=== PATIENT | male | born 1980 | race Caucasian/White ===

== ENCOUNTER → 2022-07-15 09:12 | Outpatient (BNVA) | payer OTHER, MEDICAID, SELFPAY | PROVIDERS: Visit Provider Podiatrist Foot & Ankle Surgery | DX: E11.621 Type 2 diabetes mellitus with foot ulcer (principal); L97.503 Non-pressure chronic ulcer of other part of unspecified foot with necrosis of muscle; E11.9 Type 2 diabetes mellitus without complications; G62.9 Polyneuropathy, unspecified; Z79.84 Long term (current) use of oral hypoglycemic drugs | CPT/HCPCS: 73630 ==

== ENCOUNTER 2023-07-03 09:45 | Outpatient (CLI) | payer OTHER, SELFPAY ==
--- NOTE | 2023-07-03 09:52 | XR_ITS ---
WS: [id number] Exam: XR foot RT min 3V* [id number] Date/Time of Exam: 07/03/2023 9:55 AM Reason For Exam: non-healing ulcer of right plantar foot Comparison 07/15/2022. No acute fracture or bone destruction identified. Degenerative changes in the midfoot joints. There m ay be soft tissue ulceration along the plantar aspect of the midfoot region. There is bony sclerosis of the tarsal bones with some early joint disorganization that could indicate early changes of [place] t neuropathy. IMPRESSION: 1. Large plantar skin ulceration. Generalized edema of the foot. 2. No fracture or bone destruction seen. 3. Degenerative changes in the midfoot joints with bony sclerosis of several tarsal bones. Early womack ges of Charcot neuropathy might be a consideration.
== END 2023-07-03 09:46 | disposition home or self-care (01) ==
LOC: RAD 09:47
PROVIDERS: PCP Thoracic Surgery (Cardiothoracic Vascular Surgery); Visit Provider Thoracic Surgery (Cardiothoracic Vascular Surgery)
DX: E08.621 Diabetes mellitus due to underlying condition with foot ulcer (principal); L97.502 Non-pressure chronic ulcer of other part of unspecified foot with fat layer exposed; L97.509 Non-pressure chronic ulcer of other part of unspecified foot with unspecified severity
CPT/HCPCS: 73630

== ENCOUNTER 2023-07-04 21:39 | Inpatient (IN) | payer OTHER, SELFPAY ==
[2023-07-04 21:43] VITALS: BP 178/72; PULSE 104; RESP 20; TEMP 38.6; O2SAT 98
[2023-07-04] MEDS: acetaminophen 500 mg Tablet 1000 MG PO (22:06)
--- NOTE | 2023-07-04 22:43 | XRR_ITS ---
PROCEDURE INFORMATION: Exam: XR Chest Exam date and time: 07/04/2023 10:46 PM Age: 42 years old Clinical indication: Cough and fever; Additional info: Cough fever TECHNIQUE: Imaging protocol: Radiologic exam of the chest. Views: 1 view. COMPARISON: No relevant prior studies available. FINDINGS: Lungs: Bilateral left greater than right hilar to lower lobe bronchopneumonia. Pleural spaces: Unremarkable. No pleural effusion. No pneumothorax. Heart/Mediastinum: Unremarkable. No cardiomegaly. Bones/joints: Unremarkable. XR/XR chest 1V portable [id number] IMPRESSION: Bilateral left greater than right hilar to lower lobe bronchopneumonia.
[2023-07-04 23:06] VITALS: PULSE 104; RESP 22; TEMP 37.6; O2SAT 92
[2023-07-04 23:12] LABS: Basophils # 0.1 10^3/uL (0.0-0.1); Basophils % 0.2 %; Hematocrit 38.7 % (37-53); Lymphocytes # 0.7 10^3/uL (0.8-4.8); Lymphocytes % 2.3 %; Mean Corpuscular HGB Conc 31.8 g/dL (30-55); Mean Corpuscular Hemoglobin 28.5 pg (27-33); Mean Corpuscular Volume 89.8 fl (82-101); Mean Platelet Volume 11.1 fL (7.4-10.4); Monocytes # 0.7 10^3/uL (0.2-0.9); Monocytes % 2.4 %; Neutrophils # 28.54 10^3/uL (1.8-7.7); Neutrophils % 94.4 %; Nucleated Red Blood Cells % 0 %; Platelet Count 339 10^3/cmm (157-399); Red Blood Count 4.31 10^6/uL (3.85-5.65); Red Cell Distribution Width 13.2 % (12.1-15.1)
--- NOTE | 2023-07-04 23:27 | ED_ITS ---
HPI - Fever 2 General: Chief Complaint: Fever Stated Complaint: weakness Time Seen by Provider: 07/04/23 22:41 History of Present Illness: Presents to the ER today with complaints of cough fever and shaking all beginning this afternoon. Upon patient's arrival his pulse was 104, temperature was 101.4. Patient states he has been around a lot of people knowing that he is known has been overtly sick. Patient is a diabetic patient states before this afternoon he felt just fine. Review of Systems 2 General: Reports: 10 or more systems reviewed and unremarkable except in HPI and below Physical Exam 2 Const: COMMON NORMALS: no acute distress, average body habitus, patient oriented x3, no limitations, healthy appearing, alert and well nourished HENMT: COMMON NORMALS: normocephalic, atraumatic, hearing grossly normal bilaterally, external ears normal, EAC's normal, moist oral mucous membranes and oropharynx normal HEAD & SCALP: normocephalic and atraumatic EXTERNAL EAR: Yes external ears normal EXTERNAL AUDITORY CANAL: EAC's normal Neck/C-Spine: COMMON NORMALS: full ROM, no lymphadenopathy, supple, no meningeal signs, no JVD and Thyroid normal THYROID: Thyroid normal Chest: COMMONS NORMALS: normal inspection of the chest and normal palpation of entire chest wall Resp: COMMON NORMALS: normal respiratory effort, No retractions, No use of accessory muscles and clear to auscultation bilaterally AUSCULTATION: clear to auscultation bilaterally Cardio: COMMON NORMALS: no JVD, regular rhythm, S1 normal heart sound present, S2 normal heart sound present, No gallops present (Cardio), No clicks present (Cardio), No murmurs present (Cardio) and No rub (Cardio); negative for regular rate (Tachycardic) RATE: abnormal rate (Tachycardic) RHYTHM: regular rhythm HEART SOUNDS: S1 normal heart sound present and S2 normal heart sound present GI: COMMON NORMALS: Normal to inspection, nondistended, normoactive bowel sounds present, Soft to palpation, non-tender, No hepatosplenomegaly present and no masses PALPATION: Yes Soft to palpation and Yes No hepatosplenomegaly present Neuro: COMMON NORMALS: patient oriented x3 SENSORIUM/ORIENTATION: Yes alert MENINGEAL SIGNS: Yes no meningeal signs Course 2 Vital Signs: Vital signs: Vital Signs Temperature 99.7 F H 07/04/23 23:06 Pulse Rate 99 07/05/23 01:00 Respiratory Rate 21 H 07/05/23 01:00 Blood Pressure 136/40 07/05/23 01:00 Pulse Oximetry 94 07/05/23 01:00 Oxygen Delivery Me thod Room Air 07/05/23 01:00 MDM - Fever Medical Decision Making Lab work was obtained which showed a white count of 30,000, chest x-ray showed bilateral left greater than right hilar to lower lobe bronchopneumonia. Patient was given Zosyn, Tylenol and a liter saline in the ER. Dr. rTejo was consulted who agreed to place patient inpatient for further evaluation and treatment. We will try to obtain a CTA of the chest, an ABG, and a full respiratory panel. Differential Diagnosis Unlikely abdominal pain, acute appendicitis, calculus of kidney, constipation, diverticulitis, endometriosis, gastroenteritis, pancreatitis or small bowel obstruction Medical Records I reviewed the patient's medical records. Lab Data I reviewed the patient's lab results. 07/04/23 23:03 07/04/23 23:03 Radiology Impressions Chest X-Ray 07/04/23 22:43 IMPRESSION: Bilateral left greater than right hilar to lower lobe bronchopneumonia. Laboratory Results WBC 30.25 10^3/uL (3.29-11.43) H* 07/04/23 23:03 RBC 4.31 10^6/uL (3.85-5.65) 07/04/23 23:03 Hgb 12.30 g/dL (11.27-16.99) 07/04/23 23:03 Hct 38.7 % (37-53) 07/04/23 23:03 MCV 89.8 fl (82-101) 07/04/23 23:03 MCH 28.5 pg (27-33) 07/04/23 23:03 MCHC 31.8 g/dL (30-55) 07/04/23 23:03 RDW 13.2 % (12.1-15.1) 07/04/23 23:03 Plt Count 339 10^3/cmm (157-399) 07/04/23 23:03 MPV 11.1 fL (7.4-10.4) H 07/04/23 23:03 Neut % (Auto) 94.4 % 07/04/23 23:03 Lymph % (Auto) 2.3 % 07/04/23 23:03 [place] % (Auto) 2.4 % 07/04/23 23:03 Eos % (Auto) 0.0 % 07/04/23 23:03 Baso % (Auto) 0.2 % 07/04/23 23:03 Neut # (Auto) 28.54 10^3/uL (1.8-7.7) H 07/04/23 23:03 Lymph # (Auto) 0.7 10^3/uL (0.8-4.8) L 07/04/23 23:03 [place] # (Auto) 0.7 10^3/uL (0.2-0.9) 07/04/23 23:03 Eos # (Auto) 0.0 10^3/uL (0.0-0.8) 07/04/23 23:03 Baso # (Auto) 0.1 10^3/uL (0.0-0.1) 07/04/23 23:03 Nucleated RBC % (auto) 0 % 07/04/23 23:03 Nucleated RBCs # 0.0 /100WBC 07/04/23 23:03 Sodium 135 mmol/L (136-145) L 07/04/23 23:03 Potassium 5.0 mmol/L (3.5-5.1) 07/04/23 23:03 Chloride 98 mmol/L (98-107) 07/04/23 23:03 Carbon Dioxide 26 mmol/L (22-29) 07/04/23 23:03 Anion Gap 16.0 (5-19) 07/04/23 23:03 BUN 21 mg/dL (6-20) H 07/04/23 23:03 Creatinine 0.7 mg/dL (0.7-1.2) 07/04/23 23:03 GFR Calculation 123.1 mL/min (90-130) 07/04/23 23:03 Glucose 298 mg/dL (65-115) H 07/04/23 23:03 Calculated Osmolality 294 mOsm/kg (285-295) 07/04/23 23:03 Calcium 9.5 mg/dL (8.5-10.5) 07/04/23 23:03 Total Bilirubin 0.5 mg/dL (0.15-1.2) 07/04/23 23:03 AST 18 U/L (0-40) 07/04/23 23:03 ALT 22 U/L (0-41) 07/04/23 23:03 Alkaline Phosphatase 108 U/L (40-130) 07/04/23 23:03 Total Protein 8.3 g/dL (6.6-8.7) 07/04/23 23:03 Albumin 3.6 g/dL (3.5-5.2) 07/04/23 23:03 Globulin 4.7 g/dL (1.3-4.6) H 07/04/23 23:03 Influenza Type A Ag negative (Negative) 07/04/23 23:08 Influenza Type B Ag negative (Negative) 07/04/23 23:08 SARS-CoV-2 Ag (Rapid) negative (Negative) 07/04/23 23:08 All radiology interpretation(s) finalized by discharge Discharge Plan Discharge Patient Disposition: Admitted As Inpatient Clinical Impression: Morbid obesity Bilateral pneumonia Qualifiers: Pneumonia type: due to unspecified organism Lung location: lower lobe of lung Q ualified Code(s): J18.9 - Pneumonia, unspecified organism Condition: Stable Coding Level of Care Code ED [facility] for Cali Dixon
[2023-07-04 23:28] LABS: White Blood Count 30.25 10^3/uL (3.29-11.43)
[2023-07-04 23:42] LABS: Alanine Aminotransferase 22 U/L (0-41); Albumin Level 3.6 g/dL (3.5-5.2); Alkaline Phosphatase 108 U/L (40-130); Aspartate Amino Transferase 18 U/L (0-40); Blood Urea Nitrogen 21 mg/dL (6-20); Calcium 9.5 mg/dL (8.5-10.5); Carbon Dioxide 26 mmol/L (22-29); Chloride 98 mmol/L (98-107); Globulin 4.7 g/dL (1.3-4.6); Glomerular Filtration Rate 123.1 mL/min (90-130); Glucose 298 mg/dL (65-115); Osmolality Calculated 294 mOsm/kg (285-295); Sodium 135 mmol/L (136-145); Total Bilirubin 0.5 mg/dL (0.15-1.2); Total Protein 8.3 g/dL (6.6-8.7)
[2023-07-04 23:45] LABS: Influenza A by IFA negative (Negative); Influenza B by IFA negative (Negative); SARS Covid-2 Antigen negative (Negative)
[2023-07-05] VITALS (15 sets, daily range): BP systolic 109–136; BP diastolic 40–74; PULSE 61–99; RESP 15–22; TEMP 36.4–37; O2SAT 91–98; BMI 86.0
[2023-07-05] MEDS: piperacillin-tazobactam 3.375 GM in sodium chloride 0.9% (plus) 50 ML IV ×4 (00:01→22:52)
--- NOTE | 2023-07-05 01:16 | CTR_ITS ---
PROCEDURE INFORMATION: Exam: CTA Chest With Contrast Exam date and time: 07/05/2023 1:56 AM Age: 42 years old Clinical indication: Dyspnea; Additional info: SOB TECHNIQUE: Imaging protocol: Computed tomographic angiography of the chest with contrast. Exam focused on the arteries. 3D rendering (Not supervised by radiologist): MIP and/or 3D reconstructed images were created by the technologist. Radiation optimization: All CT scans at this facility use at least one of these dose optimization techniques: automated exposure control; mA and/or kV adjustment per patient size (includes targeted exams where dose is matched to clinical indication); or iterative reconstruction. Contrast material: OMNI 350; Contrast volume: 125 ml; Contrast route: INTRAVENOUS (IV); COMPARISON: CR (CHEST, ) 07/04/2023 10:46 PM RADIATION DOSE METRICS: Total DLP (mGy-cm): 545.67 FINDINGS: Pulmonary arteries: Pulmonary embolus is not diagnosed or excluded on this examination due to suboptimal opacification of the pulmonary arteries, prominent diffuse streak and motion artifact. Aorta: There is no thoracic aortic aneurysm or dissection. Lungs: No pulmonary consolidation. There are mild bibasilar atelectatic changes. There is central peribronchial thickening as seen in bronchitis or viral pneumonitis (coronal image 38/7). Pleural spaces: Unremarkable. No pneumothorax. No pleural effusion. Heart: The heart is normal in size. There are no pericardial fluid collections. Lymph nodes: No enlarged mediastinal or hilar lymph nodes are seen. Bones/joints: No acute fracture is seen. Soft tissues: Unremarkable. Other findings: No acute findings in the included upper abdomen. CT/CT angio chest PE protcl [id number] IMPRESSION: 1. Pulmonary embolus is not diagnosed or excluded on this examination due to suboptimal opacification of the pulmonary arteries, prominent diffuse streak and motion artifact. 2. There is no thoracic aortic aneurysm or dissection. 3. There is central peribronchial thickening as seen in bronchitis or viral pneumonitis (coronal image 38/7). No consolidation.
--- NOTE | 2023-07-05 01:29 | PM.HP ---
Providers/Chief Complaint Primary Care Provider: Orestes Flores MD Chief Complaint: weakness History of Present Illness Adama Guo is a 42 year old male with a past medical history of morbid obesity, [id number] type 2 diabetes mellitus, hypertension, hyperlipidemia, who presents to [facility] due to shortness of breath, fatigue, malaise, cough, fevers, chills for the last 24 hours. Patient tells me that he was sick like this roughly a week ago and got better, but today he started to feel fatigue, malaise, fevers, chills, shortness of breath, he tells me that his family member has been sick, unknown known positive flu or COVID Review of Systems Const: Reports: fever(s), chills, body aches, fatigue and malaise Card: Denies: chest pain Resp: Reports: dyspnea and non-productive cough GI: Denies: abdominal pain : Denies: flank pain or difficulty urinating Neuro: Denies: headache(s) Medications/Allergies Home Medications Medication Instructions Recorded Confirmed Last Taken Type atorvastatin 10 mg tablet 10 mg PO DAILY 07/15/22 06/23/23 Unknown History furosemide 20 mg tablet 20 mg PO DAILY 07/15/22 06/23/23 Unknown History glipizide 10 mg tablet 10 mg PO DAILY 07/15/22 06/23/23 Unknown History lisinopril 10 mg tablet 10 mg PO DAILY 07/15/22 06/23/23 Unknown History metformin 1,000 mg tablet 1,000 mg PO BID 07/15/22 06/23/23 Unknown History diabetic shoes with 3 inserts #1 ea 08/19/22 06/23/23 Unknown Rx honey 80 % topical gel (MediHoney 1 applic topical BID #44 mL 02/09/23 06/23/23 Unknown Rx (honey)) Allergies Allergy/AdvReac Type Severity Reaction Status Date / Time No Known Allergies Allergy Verified 07/04/23 21:51 PFSH Acute PFSH: Medical History (Updated 07/05/23 @ 01:31 by Gennaro Hyde MD) Type 2 diabetes mellitus Surgical History (Updated 07/05/23 @ 01:31 by Gennaro Hyde MD) History of cholecystectomy Family History (Updated 07/05/23 @ 01:31 by Gennaro Hyde MD) Mother CAD (coronary artery disease) Stroke Social History (Updated 07/05/23 @ 01:32 by Gennaro Hyde MD) Smoking and tobacco/nicotine status: never used tobacco/nicotine Alcohol intake: never Substance/Drug Use: never Vitals/I&O/Wt Last Vital Signs Temp 99.7 F H 07/04/23 23:06 Pulse 99 07/05/23 01:00 Resp 21 H 07/05/23 01:00 BP 136/40 07/05/23 01:00 Pulse Ox 94 07/05/23 01:00 O2 Del Method Room Air 07/05/23 01:00 Weight last 48 hrs Weight 219.992 kg Physical Exam Const: COMMON NORMALS: no acute distress and patient oriented x3 OTHER: Morbidly obese individual HENMT: COMMON NORMALS: normocephalic HEAD & SCALP: normocephalic Eye: COMMON NORMALS: Equal, round and reactive pupils present Neck/C-Spine: COMMON NORMALS: no JVD Resp: COMMON NORMALS: normal respiratory effort, No retractions, No use of accessory muscles and clear to auscultation bilaterally AUSCULTATION: wheezes Cardio: COMMON NORMALS: no JVD, regular rate, regular rhythm, S1 normal heart sound present (Distant heart sounds) and S2 normal heart sound present RATE: regular rate RHYTHM: regular rhythm HEART SOUNDS: S1 normal heart sound present and S2 normal heart sound present GI: COMMON NORMALS: Normal to inspection, nondistended, normoactive bowel sounds present, Soft to palpation, non-tender, No hepatosplenomegaly present, no masses and no bruits PALPATION: Yes Soft to palpation and Yes No hepatosplenomegaly present Extremity: COMMON NORMALS: no calf tenderness and no pedal edema Neuro: COMMON NORMALS: patient oriented x3, CN's II-XII intact bilaterally and moves all extremities Psych: COMMON NORMALS: mental status grossly normal Data 07/04/23 23:03 07/04/23 23:03 A&P Assessment and plan (1) Bilateral pneumonia: Qualifiers: Lung location: lower lobe of lung Pneumonia type: due to unspecified organism Qualified Code(s): J18.9 - Pneumonia, unspecified organism Plan Bilateral pneumonia -With evidence of WBC 30.25 -Febrile emergency room normotensive, O2 sats in the low 90s on room air Plan -Monitor respiratory status closely -ABG -Pro-Fredrick, CRP, -Blood cultures ? Sputum cultures, ? CT angiogram of the chest, ? Vancomycin, ? Zosyn, ? Respiratory viral panel, ? DuoNeb Be[place] ? Type 2 diabetes mellitus, low-dose sliding scale, ? Full code consult ?Lovenox for DVT prophylaxis Attestations Medical Necessity Statement*: Patient requires hospitalization, inpatient, greater than 2 midnights, for bilateral pneumonia Diagnoses Bilateral pneumonia J18.9 Lung location: lower lobe of lung Pneumonia type: due to unspecified organism
[2023-07-05 01:38] LABS: C Reactive Protein 21.8 mg/L (0.0-4.9)
[2023-07-05 01:40] LABS: ABG PCO2 34.6 mmHg (35-45); ABG PH Result 7.45 (7.35-7.45); Alveolar-Arterial Oxygen Gradi 4.2 mmHg (5-10); Arterial Blood Gas Hematocrit 35.8 % (42-52); Base Excess ABG 0.5 mmol/L (-2.0-2.0); Blood Gas Sample Site Brachial, right; Blood Gas Sample Type Arterial; Carboxyhemoglobin 1.1 %THgb (0.4-20.1); HCO3 ABG 24.1 mmol/L (22-26); HGB O2 Sat 94.2 % (95-100); Ionized Calcium Level - ABG 1.2 mmol/L (1.1-1.4); Methemoglobin 0.5 % (0.4-1.5); Oxygen Saturation ABG 95.8; PO2 ABG 75.2 mmHg (80.0-100.0); PO2 FiO2 Ratio Arterial Blood 0; Potassium Level - ABG 4.7 mmol/L (3.5-5.0); Total Hemoglobin 11.7 g/dL (14-18)
[2023-07-05 01:45] LABS: Lactic Sepsis W/Reflex 3.3 mmol/L (0.5-2.2)
[2023-07-05 01:45] LABS: Procalcitonin 0.15 ng/mL (0-0.5)
[2023-07-05 01:55] LABS: NT Pro B Type Natriuretic Pept < 36 pg/mL (0-125)
[2023-07-05] MEDS: iohexol 350 mg/mL 500 mL Btl (per mL) IV (02:22)
[2023-07-05 02:58] LABS: Adenovirus Not Detected (NOT DETECT); Chlamydia Pneumoniae Not Detected (NOT DETECT); Coronavirus 229E,HKU1,NL63,OC4 Not Detected (NOT DETECT); Human Metapneumovirus Not Detected (NOT DETECT); Human Rhinovirus/Enterovirus Not Detected (NOT DETECT); Influenza A Not Detected (NOT DETECT); Influenza A H1 Not Detected (NOT DETECT); Influenza A H1-2009 Not Detected (NOT DETECT); Influenza A H3 Not Detected (NOT DETECT); Influenza B Not Detected (NOT DETECT); Mycoplasma Pneumoniae Not Detected (NOT DETECT); Parainfluenza Virus Type 1 Not Detected (NOT DETECT); Parainfluenza Virus Type 2 Not Detected (NOT DETECT); Parainfluenza Virus Type 3 Not Detected (NOT DETECT); Parainfluenza Virus Type 4 Not Detected (NOT DETECT); Respiratory Syncytial Virus A Not Detected (NOT DETECT); Respiratory Syncytial Virus B Not Detected (NOT DETECT); SARS-COV-2 Not Detected (NOT DETECT)
[2023-07-05 03:21] LABS: Reflex Lactate Order REFLEX LACTIC ORDERD
[2023-07-05 04:09] LABS: Lactic Acid level (Lactate) 2.3 mmol/L (0.5-2.2)
[2023-07-05 04:44] LABS: Chol HDL Ratio 3.51 mg/dL (1.0-5.00); Cholesterol 151 mg/dL (0-200); HDL Cholesterol 43 mg/dL (60-100); LDL Cholesterol Calculated 91 mg/dL (50-129); LDL HDL Ratio 2.12 RATIO (0.00-3.22); Thyroid Stimulating Hormone 1.03 uIU/mL (0.27-4.20); Triglycerides 84 mg/dL (0-150)
[2023-07-05 04:46] LABS: Estmated Average Glucose 203; Hemoglobin A1C 8.7 % (4.0-6.0)
[2023-07-05] MEDS: enoxaparin 40 mg/0.4 mL Syringe SUBCUT (05:22)
[2023-07-05] MEDS: pantoprazole 40 mg SDV IVP (05:23)
[2023-07-05] MEDS: vancomycin 2,000 MG/400 ML PIGGYBACK 200 MG IV ×3 (05:28→20:37)
[2023-07-05 06:57] LABS: Glucose Point of Care 336 mg/dL (70-110)
--- NOTE | 2023-07-05 07:52 | PC.PHAR ---
pt states he takes care of his own medications-pt states he takes lasix 20mg daily ext shows last filled 06/29/23 30d/s 10mg daily-
[2023-07-05] MEDS: ipratropium-albuterol 3 mL Neb INHALATION ×4 (07:56→20:43)
[2023-07-05] MEDS: atorvastatin 40 mg Tablet 10 MG PO (08:11)
[2023-07-05] MEDS: insulin lispro 100 unit/1 mL SUBCUT ×3 (08:11→17:44)
[2023-07-05 11:25] LABS: Glucose Point of Care 259 mg/dL (70-110)
[2023-07-05 17:34] LABS: Glucose Point of Care 260 mg/dL (70-110)
[2023-07-05] MEDS: guaiFENesin 600 mg Tablet 1200 MG PO (17:44)
--- NOTE | 2023-07-05 20:23 | PM.PN ---
Subjective Subjective: He is doing slightly better. Denies coughing. Not really bringing up any phlegm. He goes to wound care for ulceration on plantar right foot/heel. Vitals/I&O/Wt Last Vital Signs Temp 98.6 F 07/05/23 16:21 Pulse 72 07/05/23 16:21 Resp 18 07/05/23 16:21 BP 131/74 07/05/23 16:21 Pulse Ox 95 07/05/23 16:21 O2 Del Method Room Air 07/05/23 16:21 07/05/23 07/05/23 07/05/23 06:59 14:59 22:59 Intake Total 530 / 530 1570 / 1570 290 / 1860 Output Total 500 / 500 Balance 530 / 530 1570 / 1570 -210 / 1360 Weight last 48 hrs Weight 228.202 kg Weight 227.25 kg Weight 219.992 kg Physical Exam Const: COMMON NORMALS: patient oriented x3 and alert GENERAL APPEARANCE: cooperative NUTRITIONAL APPEARANCE: obese morbidly obese ORIENTATION/CONSCIOUSNESS: Yes awake HENMT: COMMON NORMALS: oropharynx normal Neck/C-Spine: COMMON NORMALS: no JVD Resp: COMMON NORMALS: normal respiratory effort and clear to auscultation bilaterally AUSCULTATION: clear to auscultation bilaterally Cardio: COMMON NORMALS: no JVD, regular rhythm, S1 normal heart sound present, S2 normal heart sound present and No murmurs present (Cardio) RHYTHM: regular rhythm HEART SOUNDS: S1 normal heart sound present and S2 normal heart sound present GI: COMMON NORMALS: Normal to inspection, nondistended, normoactive bowel sounds present, Soft to palpation and non-tender PALPATION: Yes Soft to palpation Extremity: COMMON NORMALS: no joint enlargement and no pedal edema Neuro: COMMON NORMALS: patient oriented x3 and moves all extremities SENSORIUM/ORIENTATION: Yes alert Skin: COMMON NORMALS: no rashes or lesions noted GENERAL SKIN EXAM: no rashes or lesions noted Data 07/04/23 23:03 07/04/23 23:03 Micro: Microbiology 07/05/23 08:18 Legionella Urinary Antigen - Final Urine,Clean Catch 07/05/23 08:18 Bacterial Antigens - Final Urine,Voided A&P Assessment and plan (1) Bilateral pneumonia: Qualifiers: Lung location: lower lobe of lung Pneumonia type: due to unspecified organism Qualified Code(s): J18.9 - Pneumonia, unspecified organism Plan Bilateral pneumonia Reviewed vitals, CBC, noted leukocytosis 30.25. He denies diarrhea. Reviewed ABG, chemistry, A1c, lactate is improving. CRP, NT-proBNP. TSH. Respiratory viral panel. Reviewed CTA, chest x-ray. Add guaifenesin, flutter valve Bronchopneumonia suggested by imaging, with leukocytosis, mild hypoxia on ABG. But severity of leukocytosis not in the cervical spine to symptoms. Additionally found to have cellulitis of right lower extremity with diffuse irregular edema of right lower extremity particularly anterolateral, warmth, continue Zosyn, vancomycin. At risk of renal dysfunction with antibiotic combination. Reassess kidney function. Chemistry requested. Monitor electrolytes. Discussed with case management manager. DuoNeb ? Type 2 diabetes mellitus, continue low-dose sliding scale, change diet to consist carbohydrate ? Full code ?Lovenox for DVT prophylaxis Attestations Medical Necessity Statement*: Continue admission for assessment and management of pneumonia, cellulitis, with very high leukocytosis and gentleman with underlying diabetes. and High MDM includes amount and/or complexity of data reviewed/ordered [ resulted lab(s)/test(s), ordered lab(s)/test(s) and other healthcare professional discussion] as documented Diagnoses Bilateral pneumonia J18.9 Lung location: lower lobe of lung Pneumonia type: due to unspecified organism
[2023-07-05 21:40] LABS: Glucose Point of Care 206 mg/dL (70-110)
[2023-07-06] VITALS (8 sets, daily range): BP systolic 126–163; BP diastolic 75–85; PULSE 64–71; RESP 15–18; TEMP 36.4–37.1; O2SAT 95–98
[2023-07-06 03:26] LABS: Basophils % 0.2 %; Eosinophils # 0.1 10^3/uL (0.0-0.8); Eosinophils % 0.8 %; Hematocrit 32.8 % (37-53); Lymphocytes # 1.8 10^3/uL (0.8-4.8); Lymphocytes % 11.3 %; Mean Corpuscular Hemoglobin 28.4 pg (27-33); Mean Corpuscular Volume 88.6 fl (82-101); Mean Platelet Volume 10.9 fL (7.4-10.4); Monocytes # 0.9 10^3/uL (0.2-0.9); Monocytes % 5.4 %; Neutrophils # 13.32 10^3/uL (1.8-7.7); Neutrophils % 81.9 %; Nucleated Red Blood Cells % 0 %; Platelet Count 261 10^3/cmm (157-399); Red Cell Distribution Width 13.7 % (12.1-15.1); White Blood Count 16.27 10^3/uL (3.29-11.43)
[2023-07-06 03:40] LABS: Vancomycin Trough 22.1 ug/mL (10-15)
[2023-07-06 03:42] LABS: Alanine Aminotransferase 16 U/L (0-41); Alkaline Phosphatase 81 U/L (40-130); Anion Gap 12.2 (5-19); Aspartate Amino Transferase 11 U/L (0-40); Blood Urea Nitrogen 15 mg/dL (6-20); Calcium 8.6 mg/dL (8.5-10.5); Carbon Dioxide 24 mmol/L (22-29); Chloride 103 mmol/L (98-107); Globulin 3.7 g/dL (1.3-4.6); Glomerular Filtration Rate 181.5 mL/min (90-130); Glucose 151 mg/dL (65-115); Magnesium 1.6 mg/dL (1.7-2.3); Osmolality Calculated 284 mOsm/kg (285-295); Phosphorus 3.4 mg/dL (2.5-4.5); Potassium 4.2 mmol/L (3.5-5.1); Sodium 135 mmol/L (136-145); Total Bilirubin 0.5 mg/dL (0.15-1.2); Total Protein 6.7 g/dL (6.6-8.7)
[2023-07-06] MEDS: pantoprazole 40 mg SDV IVP (03:53)
[2023-07-06] MEDS: enoxaparin 40 mg/0.4 mL Syringe SUBCUT (04:33)
[2023-07-06] MEDS: vancomycin 1,750 MG/350 ML PIGGYBACK 200 MG IV (05:24)
[2023-07-06 06:51] LABS: Glucose Point of Care 158 mg/dL (70-110)
[2023-07-06] MEDS: piperacillin-tazobactam 3.375 GM in sodium chloride 0.9% (plus) 50 ML IV (07:23)
[2023-07-06] MEDS: atorvastatin 40 mg Tablet 10 MG PO (08:34)
[2023-07-06] MEDS: insulin lispro 100 unit/1 mL SUBCUT (08:34)
[2023-07-06] MEDS: guaiFENesin 600 mg Tablet 1200 MG PO (08:36)
[2023-07-06] MEDS: ipratropium-albuterol 3 mL Neb INHALATION (09:21)
[2023-07-06] MEDS: magnesium sulfate premix 4 GM/100 ML PREMIX IV (10:02)
--- NOTE | 2023-07-06 10:08 | P.DS_ITS ---
Discharge Providers Date of Admission: 07/05/23 02:38 Date of Discharge: July 06, 2023 Attending Provider at Admission: Gennaro Hyde MD Attending Provider at Discharge: Wilder Thomas Primary Care Provider: Orestes Flores MD Diagnoses at Discharge Discharge Diagnosis (1) Bilateral pneumonia: Status: Acute Qualifiers: Lung location: lower lobe of lung Pneumonia type: due to unspecified organism Qualified Code(s): J18.9 - Pneumonia, unspecified organism Reason for Visit Reason for Visit: weakness Hospital Course Hospital Course 42-year-old gentleman with diabetes, obesity, hypertension, hyperlipidemia, 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 CT angiogram with bronchopneumonia, no obvious large PE, but poor quality study for that purpose. Started on broad-spectrum antibiotics, also found to have cellulitis of right lower extremity above the ankle and below the knee. With Zosyn, vancomycin, condition significant improved. Erythema resolving, leukocytosis down to 16,000. He is feeling better, still having some mild cough. Will complete antibiotic course with Levaquin and linezolid. Knows to seek medical attention in case of any worsening or new concerning symptoms. Additionally noted diabetes suboptimally controlled, hemoglobin A1c is 8.7. He is resuming on glipizide, metformin, Januvia is added. Please visit with him regarding consideration of additional medications, possibly Ozempic or other medications that may help both diabetes and with weight loss. He is to continue with wound care follow up and dressing changes for bilateral plantar ulcers. Physical Exam Const: COMMON NORMALS: patient oriented x3 and alert GENERAL APPEARANCE: cooperative NUTRITIONAL APPEARANCE: obese morbidly obese ORIENTAT ION/CONSCIOUSNESS: Yes awake HENMT: COMMON NORMALS: oropharynx normal Neck/C-Spine: COMMON NORMALS: no JVD Resp: COMMON NORMALS: normal respiratory effort and clear to auscultation bilaterally AUSCULTATION: clear to auscultation bilaterally Cardio: COMMON NORMALS: no JVD, regular rhythm, S1 normal heart sound present, S2 normal heart sound present and No murmurs present (Cardio) RHYTHM: regular rhythm HEART SOUNDS: S1 normal heart sound present and S2 normal heart sound present GI: COMMON NORMALS: Normal to inspection, nondistended, normoactive bowel sounds present, Soft to palpation and non-tender PALPATION: Yes Soft to palpation Extremity: COMMON NORMALS: no joint enlargement and no pedal edema Neuro: COMMON NORMALS: patient oriented x3 and moves all extremities SENSORIUM/ORIENTATION: Yes alert Skin: OTHER: Diffuse erythema RLE with improvement. Much less intense. Back to pink colration. Large ulcer R plantar surface near the heel. Small healing ulcer L plantar surface. Discharge Data Studies Completed and Pending Completed Studies During Hospitalization Category Date Time Status CT angio chest PE protcl [id number] Stat Cat Scan 07/05/23 01:16 Completed XR chest 1V portable [id number] Stat Exams 07/04/23 22:43 Completed Pending at discharge Category Date Time Status Basic Metabolic Panel AM LABS Lab 07/07/23 04:00 Ordered Basic Metabolic Panel AM LABS Lab 07/08/23 04:00 Ordered Basic Metabolic Panel AM LABS Lab 07/09/23 04:00 Ordered Blood Cultures ([facility]) Routine Lab 07/04/23 22:36 Received Blood Cultures ([facility]) Routine Lab 07/04/23 23:40 Received Complete Blood Count w/Auto AM LABS Lab 07/07/23 04:00 Ordered Complete Blood Count w/Auto AM LABS Lab 07/08/23 04:00 Ordered Complete Blood Count w/Auto AM LABS Lab 07/09/23 04:00 Ordered Sputum Culture and Gram Stain Stat Lab 07/05/23 01:16 Uncollected Vancomycin Trough Timed Lab 07/07/23 04:15 Ordered Radiology Impressions Chest X-Ray 07/04/23 22:43 IMPRESSION: Bilateral left greater than right hilar to lower lobe bronchopneumonia. Chest CTA 07/05/23 01:16 IMPRESSION: 1. Pulmonary embolus is not diagnosed or excluded on this examination due to suboptimal opacification of the pulmonary arteries, prominent diffuse streak and motion artifact. 2. There is no thoracic aortic aneurysm or dissection. 3. There is central peribronchial thickening as seen in bronchitis or viral pneumonitis (coronal image 38/7). No consolidation. ADDENDUM: 07/05/23 0415 THIS REPORT CONTAINS FINDINGS THAT MAY BE CRITICAL TO PATIENT CARE. The findings were verbally communicated via telephone conference with Dr. Valencia at 4:13 AM BASKETBALL REFEREE on 07/05/2023. The findings were acknowledged and understood. Laboratory Results WBC 16.27 10^3/uL (3.29-11.43) H 07/06/23 03:20 RBC 3.70 10^6/uL (3.85-5.65) L 07/06/23 03:20 Hgb 10.50 g/dL (11.27-16.99) L 07/06/23 03:20 Hct 32.8 % (37-53) L 07/06/23 03:20 MCV 88.6 fl (82-101) 07/06/23 03:20 MCH 28.4 pg (27-33) 07/06/23 03:20 MCHC 32.0 g/dL (30-55) 07/06/23 03:20 RDW 13.7 % (12.1-15.1) 07/06/23 03:20 Plt Count 261 10^3/cmm (157-399) 07/06/23 03:20 MPV 10.9 fL (7.4-10.4) H 07/06/23 03:20 Neut % (Auto) 81.9 % 07/06/23 03:20 Lymph % (Auto) 11.3 % 07/06/23 03:20 Clark % (Auto) 5.4 % 07/06/23 03:20 Eos % (Auto) 0.8 % 07/06/23 03:20 Baso % (Auto) 0.2 % 07/06/23 03:20 Neut # (Auto) 13.32 10^3/uL (1.8-7.7) H 07/06/23 03:20 Lymph # (Auto) 1.8 10^3/uL (0.8-4.8) 07/06/23 03:20 Clark # (Auto) 0.9 10^3/uL (0.2-0.9) 07/06/23 03:20 Eos # (Auto) 0.1 10^3/uL (0.0-0.8) 07/06/23 03:20 Baso # (Auto) 0.0 10^3/uL (0.0-0.1) 07/06/23 03:20 Nucleated RBC % (auto) 0 % 07/06/23 03:20 Nucleated RBCs # 0.0 /100WBC 07/06/23 03:20 Specimen Type Arterial 07/05/23 01:34 Sample Site Brachial, right 07/05/23 01:34 ABG pH 7.45 (7.35-7.45) 07/05/23 01:34 ABG pCO2 34.6 mmHg (35-45) L 07/05/23 01:34 ABG pO2 75.2 mmHg (80.0-100.0) L 07/05/23 01:34 ABG PO2/FiO2 Ratio 0 07/05/23 01:34 ABG HCO3 24.1 mmol/L (22-26) 07/05/23 01:34 ABG O2 Saturation 95.8 07/05/23 01:34 ABG Base Excess 0.5 mmol/L (-2.0-2.0) 07/05/23 01:34 Douglas Test N/a 07/05/23 01:34 A-a O2 Gradient 4.2 mmHg (5-10) L 07/05/23 01:34 Hematocrit 35.8 % (42-52) L 07/05/23 01:34 Hgb O2 Saturation 94.2 % (95-100) L 07/05/23 01:34 Carboxyhemoglobin 1.1 %THgb (0.4-20.1) 07/05/23 01:34 Methemoglobin 0.5 % (0.4-1.5) 07/05/23 01:34 Total Hemoglobin 11.7 g/dL (14-18) L 07/05/23 01:34 Sodium 134.0 mmol/L (131-143) 07/05/23 01:34 Potassium 4.7 mmol/L (3.5-5.0) 07/05/23 01:34 Glucose 342.0 mg/dL (70-115) H 07/05/23 01:34 Ionized Calcium 1.2 mmol/L (1.1-1.4) 07/05/23 01:34 O2 Delivery Device None 07/05/23 01:34 FiO2 21.0 % 07/05/23 01:34 Principal Network Engineer ID Alewe 07/05/23 01:34 Sodium 135 mmol/L (136-145) L 07/06/23 03:20 Potassium 4.2 mmol/L (3.5-5.1) 07/06/23 03:20 Chloride 103 mmol/L (98-107) 07/06/23 03:20 Carbon Dioxide 24 mmol/L (22-29) 07/06/23 03:20 Anion Gap 12.2 (5-19) 07/06/23 03:20 BUN 15 mg/dL (6-20) 07/06/23 03:20 Creatinine 0.5 mg/dL (0.7-1.2) L 07/06/23 03:20 GFR Calculation 181.5 mL/min (90-130) H 07/06/23 03:20 Glucose 151 mg/dL (65-115) H 07/06/23 03:20 POC Glucose 158 mg/dL (70-110) H 07/06/23 06:45 Estimat Average Glucose 203 07/04/23 23:03 Hemoglobin A1c 8.7 % (4.0-6.0) H 07/04/23 23:03 Calculated Osmolality 284 mOsm/kg (285-295) L 07/06/23 03:20 Lactic Acid 3.3 mmol/L (0.5-2.2) H 07/04/23 23:02 Lactic Acid (Sepsis) 2.3 mmol/L (0.5-2.2) H 07/05/23 03:47 Calcium 8.6 mg/dL (8.5-10.5) 07/06/23 03:20 Phosphorus 3.4 mg/dL (2.5-4.5) 07/06/23 03:20 Magnesium 1.6 mg/dL (1.7-2.3) L 07/06/23 03:20 Total Bilirubin 0.5 mg/dL (0.15-1.2) 07/06/23 03:20 AST 11 U/L (0-40) 07/06/23 03:20 ALT 16 U/L (0-41) 07/06/23 03:20 Alkaline Phosphatase 81 U/L (40-130) 07/06/23 03:20 C-Reactive Protein 21.8 mg/L (0.0-4.9) H 07/04/23 23:03 NT-Pro-B Natriuret Pep < 36 pg/mL (0-125) 07/04/23 23:02 Total Protein 6.7 g/dL (6.6-8.7) 07/06/23 03:20 Albumin 3.0 g/dL (3.5-5.2) L 07/06/23 03:20 Globulin 3.7 g/dL (1.3-4.6) 07/06/23 03:20 Triglycerides 84 mg/dL (0-150) 07/04/23 23:03 Cholesterol 151 mg/dL (0-200) 07/04/23 23:03 LDL Cholesterol, Calc 91 mg/dL (50-129) 07/04/23 23:03 HDL Cholesterol 43 mg/dL (60-100) L 07/04/23 23:03 LDL/HDL Ratio 2.12 RATIO (0.00-3.22) 07/04/23 23:03 Cholesterol/HDL Ratio 3.51 mg/dL (1.0-5.00) 07/04/23 23:03 Procalcitonin 0.15 ng/mL (0-0.5) 07/04/23 23:03 TSH 1.03 uIU/mL (0.27-4.20) 07/04/23 23:03 Vancomycin Trough 22.1 ug/mL (10-15) H 07/06/23 03:20 Adenovirus (PCR) Not detected (NOT DETECT) 07/05/23 01:06 C. pneumoniae DNA (PCR) Not detected (NOT DETECT) 07/05/23 01:06 Coronavirus 229E (PCR) Not detected (NOT DETECT) 07/05/23 01:06 Human Metapneumovir PCR Not detected (NOT DETECT) 07/05/23 01:06 Influenza A (H1) PCR Not detected (NOT DETECT) 07/05/23 01:06 Influ A (H1/09) PCR Not detected (NOT DETECT) 07/05/23 01:06 Influenza A (H3) PCR Not detected (NOT DETECT) 07/05/23 01:06 Influenza Type A Ag negative (Negative) 07/04/23 23:08 Influenza Type A (PCR) Not detected (NOT DETECT) 07/05/23 01:06 Influenza Type B Ag negative (Negative) 07/04/23 23:08 Influenza Type B (PCR) Not detected (NOT DETECT) 07/05/23 01:06 M. pneumoniae (PCR) Not detected (NOT DETECT) 07/05/23 01:06 Parainfluenza 1 (PCR) Not detected (NOT DETECT) 07/05/23 01:06 Parainfluenza 2 (PCR) Not detected (NOT DETECT) 07/05/23 01:06 Parainfluenza 3 (PCR) Not detected (NOT DETECT) 07/05/23 01:06 Parainfluenza 4 (PCR) Not detected (NOT DETECT) 07/05/23 01:06 RSV Type A (PCR) Not detected (NOT DETECT) 07/05/23 01:06 RSV Type B (PCR) Not detected (NOT DETECT) 07/05/23 01:06 Entero/Rhino (PCR) Not detected (NOT DETECT) 07/05/23 01:06 SARS-CoV-2 (PCR) Not detected (NOT DETECT) 07/05/23 01:06 SARS-CoV-2 Ag (Rapid) negative (Negative) 07/04/23 23:08 Vitals Last Vital Signs Temp 97.6 F 07/06/23 07:31 Pulse 71 07/06/23 09:29 Resp 18 07/06/23 09:21 BP 163/79 07/06/23 07:31 Pulse Ox 98 07/06/23 09:21 O2 Del Method Room Air 07/06/23 09:21 Discharge Plan Discharge Patient Disposition: Home Condition: Stable Prescriptions: New levofloxacin 750 mg tablet 750 mg PO DAILY 6 Days Qty: 6 0RF linezolid 600 mg tablet 600 mg PO BID Qty: 12 0RF Januvia 25 mg tablet 25 mg PO DAILY Qty: 90 0RF Continued glipizide 10 mg tablet 10 mg PO QAM metformin 1,000 mg tablet 1,000 mg PO BID lisinopril 10 mg tablet 10 mg PO QAM atorvastatin 10 mg tablet 10 mg PO QAM furosemide 20 mg tablet 20 mg PO QAM (DME) diabetic shoes with 3 inserts See Rx Instructions .Route .MEDSUPPLY Qty: 1 0RF Rx Instructions: As directed Tylenol Ex Str Rapid Release 500 mg Tablet 1,500 mg PO Q6H PRN (Reason: Pain) Discharge Orders: Discharge Order (Routine); Ordered 07/06/23 Ordered By: Wilder Thomas Referrals: Ino Delcid [Referring] - 4-7 days Orestes Flores MD [Primary Care Provider] - 1 week (Wound care) Discharge Diet: Cardiac and Diabetic Discharge Activity: Increase activity as tolerated Activity Restrictions/Additional Instructions: Follow-up with your primary doctor for reassessment of recovery from pneumonia as well as from cellulitis of right lower leg. Complete antibiotic course with Levaquin, linezolid. Continue to monitor blood glucose. Continue diabetes medications. Please note our diabetes is not optimally controlled and would benefit from better control. Your A1c is 8.7. You are started on Januvia. Discuss with our primary doctor and consider other medications which may also benefit in terms of weight loss like Ozemic. Follow up with wound care and continue dressing changes for ulcers on both soles. Discharge Attestations Time Spent in Discharge Care*: greater than 30 min Quality Metrics Clinical Quality Measures [ No reported AMI, CVA or VTE this stay] Coding Level of Care Code 69172 Total time (in minutes) for Discharge: 40 Diagnoses Bilateral pneumonia J18.9 Lung location: lower lobe of lung Pneumonia type: due to unspecified organism
[2023-07-06 11:46] LABS: Glucose Point of Care 209 mg/dL (70-110)
--- NOTE | 2023-07-06 12:00 | PC.NURSE ---
Patient being discharged and did not want his insulin
--- NOTE | 2023-07-06 13:30 | PC.NURSE ---
Patient is A&Ox3. Respirations even and non-labored on room air. Reviewed discharge instruction with patient and family. Patient and family verbalized understanding on new medications and hospital follow up appointments. Patient pushed to private car.
== END 2023-07-06 13:30 | disposition home or self-care (01) | DRG 193 ==
LOC: ER 07-05 00:45 → MEDSURG 07-05 02:38
PROVIDERS: Physician Assistant; Admitting Provider Family Medicine; Emergency Provider Emergency Medicine; PCP Thoracic Surgery (Cardiothoracic Vascular Surgery); Visit Provider Internal Medicine
DX: J18.0 Bronchopneumonia, unspecified organism (principal); L89.623 Pressure ulcer of left heel, stage 3; L03.115 Cellulitis of right lower limb; Z68.45 Body mass index [BMI] 70 or greater, adult; L97.419 Non-pressure chronic ulcer of right heel and midfoot with unspecified severity; E66.01 Morbid (severe) obesity due to excess calories; I10 Essential (primary) hypertension; E78.5 Hyperlipidemia, unspecified; E11.621 Type 2 diabetes mellitus with foot ulcer; Z79.84 Long term (current) use of oral hypoglycemic drugs; Z11.52 Encounter for screening for COVID-19
CPT/HCPCS: 36415; 36416; 36600; 71045; 71275; 80051; 80053; 80061; 80202; 82330; 82805; 82962; 83036; 83605; 83735; 83880; 84100; 84145; 84443; 85025; 86140; 86403; 87040; 87426; 87449; 87486; 87581; 87633; 87804; 94640; 96365; 96372; 99285; C9113; J1650; J1815; J2543; J3372; J3475; Q9967

== ENCOUNTER 2024-11-26 17:24 | Inpatient (IN) | payer OTHER, SELFPAY ==
[2024-11-26 17:30] VITALS: BP 171/118; PULSE 94; RESP 18; TEMP 39.3; O2SAT 97
--- NOTE | 2024-11-26 17:34 | XRR_ITS ---
PROCEDURE INFORMATION: Exam: XR Chest Exam date and time: 11/26/2024 5:38 PM Age: 44 years old Clinical indication: Fever TECHNIQUE: Imaging protocol: Radiologic exam of the chest. Views: 1 view. COMPARISON: CT angio chest PE protcl [id number] 07/05/2023 1:56 AM FINDINGS: Lungs: Unremarkable. No consolidation. Pleural spaces: Unremarkable. No pleural effusion. No pneumothorax. Heart/Mediastinum: Unremarkable. No cardiomegaly. Bones/joints: Unremarkable. XR/XR chest 1V [id number] IMPRESSION: No acute findings.
--- NOTE | 2024-11-26 17:49 | W.ED.WEAKNES ---
HPI - Weakness General: Chief complaint: Weakness Stated complaint: Weakness, Fever Time Seen by Provider: 11/26/24 17:25 History of Present Illness: Chief complaint is generalized weakness fever fatigue. Patient states symptoms started on Monday. He states he has had generalized weakness. No vomiting or diarrhea. No headache. No cough runny nose or sore throat. No tick bites. He does have multiple sores on his skin but he states they are chronic and no wounds or sores that are bothering him more painful. He has had some burning with urination and thinks he might have a UTI. No history of UTIs however. [facility] ED PFS: Medical History Type 2 diabetes mellitus Surgical History History of cholecystectomy Family History Mother CAD (coronary artery disease) Stroke Social History Smoking and tobacco/nicotine status: never used tobacco/nicotine Alcohol intake: never Substance/Drug Use: never Physical Exam Narrative: EXAM NARRATIVE: Patient is very anxious. He is tremulous. His neck is supple. His speech is clear. Patient has several chronic appearing sores on his extremities and abdomen with scabs over them without surrounding erythema or tenderness. He does have intertrigo under some overlapping areas of skin. No abdominal tenderness. No guarding or rebound. He is very anxious. He has very dry mucous membranes. Conjunctiva is normal. Pupils are equal reactive. Neck is supple. Heart is regular rhythm without rub murmurs. No calf tenderness. Patient markedly obese. Patient sits up on his own and moves his back freely. No tenderness over his neck or back. Course Vital Signs: Vital signs: Vital Signs Temperature 102.7 F H 11/26/24 17:30 Pulse Rate 94 11/26/24 18:33 Respiratory Rate 18 11/26/24 18:33 Blood Pressure 191/84 11/26/24 18:33 Pulse Oximetry 98 11/26/24 18:33 Oxygen Delivery Me thod Room Air 11/26/24 18:33 MDM - Weakness Medical Decision Making Patient reports a history of congestive heart failure. He states he is not diabetic however he has Januvia and metformin on his medication list. Also glipizide. Patient states that his symptoms started on Monday with just generalized weakness fatigue and shakiness. He is febrile here. He denies having any tick bites or going out in [place] or deep grass. He denies any concerning headaches or sore throat runny nose or congestion that is new. He states he had sinus congestion and drainage a few weeks ago but that resolved. No abdominal pain vomiting or diarrhea. He states he has had burning with urination however since Monday and thinks he might have a UTI. He denies any history of UTIs. No CVA tenderness. He denies IV drug use or recent hospitalization. He denies immune compromise. He reports a history of congestive heart failure. He states he has had some discomfort in his chest that is constant for the last 2 months. It is not pleuritic or exertional. Plan to get chest x-ray to evaluate for pneumonia and CBC CMP lactic blood cultures. Patient has not been taking his medications the last few days due to his generalized weakness. Will need to be cautious with his history of congestive heart failure not administer excessive IV fluid so we will just administer 1 L normal saline IV fluid bolus for this reason. I ordered lactic. With his temperature elevation and concern for infection will administer 1 g Rocephin IV empirically for possible UTI. He had no abdominal pain or abdominal tenderness to suggest intra-abdominal source. He does have multiple wounds that appear old but they do not appear cellulitic and there is no area of fluctuance. He does have some intertrigo however this would not be likely to be causing his symptoms. He denies have any pains or sores in his groin or buttock area. Patient urinalysis consistent with UTI. White count is elevated. Lactic not significantly elevated. Troponin was not elevated. proBNP not significantly elevated. Will administer second liter normal saline IV fluid bolus as patient tolerated the first. Patient still feels very weak. Patient had ketones in the urine has not been able to take his home medications. Plan to admit to the hospital. I consulted with the hospitalist who will admit. Lab Data 11/26/24 17:58 11/26/24 17:58 Radiology Impressions Chest X-Ray 11/26/24 17:34 IMPRESSION: No acute findings. Laboratory Results WBC 14.00 10^3/uL (3.29-11.43) H 11/26/24 17:58 RBC 4.61 10^6/uL (3.85-5.65) 11/26/24 17:58 Hgb 13.10 g/dL (11.27-16.99) 11/26/24 17:58 Hct 41.7 % (37-53) 11/26/24 17:58 MCV 90.5 fl (82-101) 11/26/24 17:58 MCH 28.4 pg (27-33) 11/26/24 17:58 MCHC 31.4 g/dL (30-55) 11/26/24 17:58 RDW 13.3 % (12.1-15.1) 11/26/24 17:58 Plt Count 210 10^3/cmm (157-399) 11/26/24 17:58 MPV 11.7 fL (7.4-10.4) H 11/26/24 17:58 Neut % (Auto) 88.6 % 11/26/24 17:58 Lymph % (Auto) 4.2 % 11/26/24 17:58 Parke % (Auto) 6.4 % 11/26/24 17:58 Eos % (Auto) 0.0 % 11/26/24 17:58 Baso % (Auto) 0.2 % 11/26/24 17:58 Neut # (Auto) 12.39 10^3/uL (1.8-7.7) H 11/26/24 17:58 Lymph # (Auto) 0.6 10^3/uL (0.8-4.8) L 11/26/24 17:58 Parke # (Auto) 0.9 10^3/uL (0.2-0.9) 11/26/24 17:58 Eos # (Auto) 0.0 10^3/uL (0.0-0.8) 11/26/24 17:58 Baso # (Auto) 0.0 10^3/uL (0.0-0.1) 11/26/24 17:58 Nucleated RBC % (auto) 0 % 11/26/24 17:58 Nucleated RBCs # 0.0 /100WBC 11/26/24 17:58 Sodium 128 mmol/L (136-145) L 11/26/24 17:58 Potassium 4.4 mmol/L (3.5-5.1) 11/26/24 17:58 Chloride 93 mmol/L (98-107) L 11/26/24 17:58 Carbon Dioxide 18 mmol/L (22-29) L 11/26/24 17:58 Anion Gap 21.4 (5-19) H 11/26/24 17:58 BUN 12 mg/dL (6-20) 11/26/24 17:58 Creatinine 0.7 mg/dL (0.7-1.2) 11/26/24 17:58 GFR Calculation 122.0 mL/min (90-130) 11/26/24 17:58 Glucose 410 mg/dL (65-115) H 11/26/24 17:58 Calculated Osmolality 283 mOsm/kg (285-295) L 11/26/24 17:58 Lactic Acid 1.6 mmol/L (0.5-2.2) 11/26/24 17:58 Calcium 8.0 mg/dL (8.5-10.5) L 11/26/24 17:58 Total Bilirubin 0.9 mg/dL (0.15-1.2) 11/26/24 17:58 AST 12 U/L (0-40) 11/26/24 17:58 ALT 12 U/L (0-41) 11/26/24 17:58 Alkaline Phosphatase 118 U/L (40-130) 11/26/24 17:58 Troponin T Baseline 9 ng/L (0-15) 11/26/24 17:58 NT-Pro-B Natriuret Pep 419 pg/mL (0-125) H 11/26/24 17:58 Total Protein 7.3 g/dL (6.6-8.7) 11/26/24 17:58 Albumin 3.5 g/dL (3.5-5.2) 11/26/24 17:58 Globulin 3.8 g/dL (1.3-4.6) 11/26/24 17:58 Urine Color Yellow (Yellow) 11/26/24 18:30 Urine Appearance Turbid (CLEAR) A 11/26/24 18:30 Urine pH 5.5 (5-7) 11/26/24 18:30 Ur Specific Chestnut 1.024 (1.005-1.030) 11/26/24 18:30 Urine Protein 2+ (Negative) A 11/26/24 18:30 Urine Glucose (UA) 3+ (Normal) H 11/26/24 18:30 Urine Ketones 3+ (Negative) H 11/26/24 18:30 Urine Blood 2+ (Negative) A 11/26/24 18:30 Urine Nitrate Positive (Negative) A 11/26/24 18: Urine Bilirubin Negative (Negative) 11/26/24 18:30 Urine Urobilinogen 1.0 mg/dL (Negative) 11/26/24 18:30 Ur Leukocyte Esterase 2+ (Negative) A 11/26/24 18:30 Urine RBC 21-50 /hpf (0-2) H 11/26/24 18:30 Urine WBC >100 /hpf (0-5) H 11/26/24 18:30 Ur Squamous Epith Cells 0-5 /hpf (0-5) 11/26/24 18:30 Amorphous Sediment Not Reportable 11/26/24 18:30 Urine Bacteria 4+ /hpf (NONE) H 11/26/24 18:30 Hyaline Casts 0.81 /lpf 11/26/24 18:30 Influenza A (PCR) Negative (Negative) 11/26/24 18:20 Influenza Type B (PCR) Negative (Negative) 11/26/24 18:20 RSV (PCR) Negative (Negative) 11/26/24 18:20 SARS-CoV-2 (PCR) Negative (Negative) 11/26/24 18:20 All radiology interpretation(s) finalized by discharge Discharge Plan Discharge Patient Disposition: Admitted As Inpatient Clinical Impression: Acute cystitis with hematuria, Acute dehydration, Generalized weakness Condition: Stable Coding Level of Care Code ED Senior [employer]st for [facility] Fwd Related Data Home Medications ?Medication ?Instructions ?Recorded ?Confirmed atorvastatin 10 mg tablet 10 mg PO QAM 07/15/22 08/25/23 furosemide 20 mg tablet 20 mg PO QAM 07/15/22 08/25/23 glipizide 10 mg tablet 10 mg PO QAM 07/15/22 08/25/23 lisinopril 10 mg tablet 10 mg PO QAM 07/15/22 08/25/23 metformin 1,000 mg tablet 1,000 mg PO BID 07/15/22 08/25/23 acetaminophen 500 mg tablet 1,500 mg PO Q6H PRN Pain 07/05/23 08/25/23 Previous Rx's ?Medication ?Instructions ?Recorded linezolid 600 mg tablet 600 mg PO BID #12 tabs 07/06/23 sitagliptin phosphate 25 mg tablet 25 mg PO DAILY #90 tabs 07/06/23 (Madhav) diabetic shoes with 3 inserts #1 ea 08/25/23 Allergies Allergy/AdvReac Type Severity Reaction Status Date / Time No Known Allergies Allergy Verified 11/26/24 17:38
[2024-11-26] MEDS: sodium chloride 0.9% 500 ML 999 ML IV (18:08)
[2024-11-26] MEDS: cefTRIAXone 1,000 mg SDV 1000 MG IVP ×2 (18:08→19:45)
[2024-11-26] MEDS: acetaminophen 325 mg Tablet 650 MG PO (18:08)
--- NOTE | 2024-11-26 18:13 | ECG_ITS ---
Polyera Test Date: 2024-11-26 Pat Name: Adama Guo Department: Room: Gender: Male Sustainability Project Coordinator: : 1980 Requested By: Kwadwo Aldridge Order Number: [id number] Ferrell MD: Ximena Archuleta M.D. Measurements Intervals [place] Rate: 93 P: 52 VT: 174 QRS: -1 QRSD: 113 T: 65 QT: 350 QTc: 437 Interpretive Statements SINUS RHYTHM POSSIBLE ANTERIOR MYOCARDIAL INFARCTION , OF INDETERMINATE AGE [30 ms Q WAVE IN V3/V4, OR R < 0.2 mV IN V4] No previous ECG available for comparison Electronically Signed On 11-27-2024 21:48:47 CDT by Ximean Archuleta M.D. [email or web address]
[2024-11-26 18:14] LABS: Basophils % 0.2 %; Hematocrit 41.7 % (37-53); Lymphocytes # 0.6 10^3/uL (0.8-4.8); Lymphocytes % 4.2 %; Mean Corpuscular HGB Conc 31.4 g/dL (30-55); Mean Corpuscular Hemoglobin 28.4 pg (27-33); Mean Corpuscular Volume 90.5 fl (82-101); Mean Platelet Volume 11.7 fL (7.4-10.4); Monocytes # 0.9 10^3/uL (0.2-0.9); Monocytes % 6.4 %; Neutrophils # 12.39 10^3/uL (1.8-7.7); Neutrophils % 88.6 %; Nucleated Red Blood Cells % 0 %; Platelet Count 210 10^3/cmm (157-399); Red Blood Count 4.61 10^6/uL (3.85-5.65); Red Cell Distribution Width 13.3 % (12.1-15.1)
[2024-11-26 18:30] LABS: Lactic Sepsis W/Reflex 1.6 mmol/L (0.5-2.2)
[2024-11-26 18:32] LABS: Troponin(5th) Baseline 9 ng/L (0-15)
[2024-11-26 18:33] VITALS: BP 191/84; PULSE 94; RESP 18; O2SAT 98
[2024-11-26 18:42] LABS: Alanine Aminotransferase 12 U/L (0-41); Albumin Level 3.5 g/dL (3.5-5.2); Alkaline Phosphatase 118 U/L (40-130); Anion Gap 21.4 (5-19); Aspartate Amino Transferase 12 U/L (0-40); Blood Urea Nitrogen 12 mg/dL (6-20); Carbon Dioxide 18 mmol/L (22-29); Chloride 93 mmol/L (98-107); Creatinine Clr Calc Pharmacy 232.8194; Globulin 3.8 g/dL (1.3-4.6); Glucose 410 mg/dL (65-115); NT Pro B Type Natriuretic Pept 419 pg/mL (0-125); Osmolality Calculated 283 mOsm/kg (285-295); Potassium 4.4 mmol/L (3.5-5.1); Sodium 128 mmol/L (136-145); Total Bilirubin 0.9 mg/dL (0.15-1.2); Total Protein 7.3 g/dL (6.6-8.7)
[2024-11-26 18:49] LABS: Bilirubin Urine Negative (Negative); Blood Urine 2+ (Negative); Glucose Urine UA 3+ (Normal); Ketones Urine 3+ (Negative); Leukocyte Esterase Urine 2+ (Negative); Nitrate Urine Positive (Negative); Protein Urine 2+ (Negative); Specific Gravity, Urine 1.024 (1.005-1.030); Urine Appearance Turbid (CLEAR); Urine Color Yellow (Yellow); pH Urine 5.5 (5-7)
[2024-11-26 18:51] LABS: Bacteria Urine 4+ /hpf; Hyaline Casts Urine 0.81 /lpf; RBC Urine 21-50 /hpf (0-2); Squamous Epithelial Cell Urine 0-5 /hpf (0-5); WBC Urine >100 /hpf (0-5)
[2024-11-26 19:13] LABS: Add Urine Culture? Yes
[2024-11-26 19:24] LABS: Influenza A NEGATIVE (Negative); Influenza B NEGATIVE (Negative); Respiratory Syncytial Virus Ce NEGATIVE (Negative); SARS-CoV-2 PCR NEGATIVE (Negative)
[2024-11-26] MEDS: sodium chloride 0.9% 1,000 ML 999 ML IV (19:45)
[2024-11-26 19:48] VITALS: BP 115/63; PULSE 90; RESP 16; TEMP 39.2; O2SAT 93
[2024-11-26 20:06] LABS: Troponin 5 2HR 9.32 ng/L (0-15); Troponin 5 2HR Delta 0.32 ABS# (0-10)
[2024-11-26 20:23] VITALS: BP 127/87; PULSE 84; RESP 16; O2SAT 90
[2024-11-26 20:40] VITALS: TEMP 37.1
--- NOTE | 2024-11-26 20:52 | PM.HP ---
Providers/Chief Complaint Admitting Physician: Humberto Vázquez MD Primary Care Provider: Orestes Flores MD Chief Complaint: Weakness, Fever History of Present Illness Adama Guo is a 44 year old male with diabetes and morbid obesity lives alone at home and a tiny house 12 x 30 feet on his uncles property. Patient states last few days he has had dysuria shaking and shivering sleeping all the time so finally called the ambulance. Here patient has UA positive for infection with white cells and bacteria and microscopic hematuria. He has preserved renal function, hyponatremia to 128, glucose 410 white count 14. Patient temperature here 102 lactic acid normal and he is received 2 L of IV fluid. Patient states he has had 2 or 3 UTIs in his life last was 5 to 6 years ago. 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 He has been using Ozempic 1 mg/week. He missed his last dose. His heaviest weight was in 2009. At that time he could still walk and states he was more mobile than. Patient denies psychiatric diagnosis. Past medical history diabetes hyperlipidemia hypertension obesity Past surgical history cataract surgery at age 43 Cholecystectomy and appendectomy at age 10 Review of Systems Narrative: General Positive for chronic obesity and now subjective fevers chills shakes Cardiovascular no chest pain or palpitations Respiratory no shortness of breath cough GI positive for nausea without vomiting he has had some diarrhea Skin he has had yeast in his groin and skin folds Psych denies psychiatric illness Medications/Allergies Home Medications ?Medication ?Instructions ?Recorded ?Confirmed ?Last Taken ?Type atorvastatin 10 mg tablet 10 mg PO QAM 07/15/22 08/25/23 Unknown History furosemide 20 mg tablet 20 mg PO QAM 07/15/22 08/25/23 Unknown History glipizide 10 mg tablet 10 mg PO QAM 07/15/22 08/25/23 Unknown History lisinopril 10 mg tablet 10 mg PO QAM 07/15/22 08/25/23 Unknown History metformin 1,000 mg tablet 1,000 mg PO BID 07/15/22 08/25/23 Unknown History acetaminophen 500 mg tablet 1,500 mg PO Q6H PRN Pain 07/05/23 08/25/23 Unknown History linezolid 600 mg tablet 600 mg PO BID #12 tabs 07/06/23 08/25/23 Unknown Rx sitagliptin phosphate 25 mg tablet 25 mg PO DAILY #90 tabs 07/06/23 08/25/23 Unknown Rx (Januvia) diabetic shoes with 3 inserts #1 ea 08/25/23 08/25/23 Unknown Rx Allergies Allergy/AdvReac Type Severity Reaction Status Date / Time No Known Allergies Allergy Verified 11/26/24 17:38 PFSH Acute PFSH: Medical History Type 2 diabetes mellitus Surgical History History of cholecystectomy Family History Mother CAD (coronary artery disease) Stroke Social History Smoking and tobacco/nicotine status: never used tobacco/nicotine Alcohol intake: never Substance/Drug Use: never Vitals/I&O/Wt Last Vital Signs Temp 98.8 F 11/26/24 20:40 Pulse 84 11/26/24 20:23 Resp 16 11/26/24 20:23 BP 127/87 11/26/24 20:23 Pulse Ox 90 11/26/24 20:23 O2 Del Method Room Air 11/26/24 19:48 11/26/24 11/26/24 11/26/24 06:59 14:59 22:59 Intake Total 1500 / 1500 Balance 1500 / 1500 Weight last 48 hrs Weight 219.992 kg Physical Exam Narrative: General well-developed morbidly obese male fatigued lethargic but alert and oriented and pleasant CV regular rate and rhythm Lungs clear to auscultation bilaterally Abdomen positive bowel sounds obese not tender next line back I could not have the patient sit up or roll over to check his back but sides on exam are not tender. Calves trace to 1+ at edema with some chronic venous stasis changes Skin he has erythema and moistness underneath his left breast fold. Left groin limited examination was not erythematous or yeasty. Oral Mallampati 3 or 4 Data 11/26/24 17:58 11/26/24 17:58 Micro: Microbiology 11/26/24 17:58 Blood Culture - Preliminary Blood SPECIMEN COLLECTED 11/26/24 17:51 Blood Culture - Preliminary Blood SPECIMEN COLLECTED A&P Assessment and plan (1) Acute cystitis with hematuria: Patient is admitted to hospital with Rocephin 2 g IV daily looks like he received 2 g in the ER. Will start next 2 g in the morning monitor daily mini panel and CBC. We did not CT or ultrasound sound his kidneys in part due to body habitus and in part due to no flank or back pain and patient is not septic (2) Acute dehydration: Continue with fluid hydration (3) Type 2 diabetes mellitus: Start sliding scale insulin low scale. Hold metformin (4) Morbid obesity: 2200-calorie ADA diet PDMP PDMP Reviewed: Not Reviewed Attestations Medical Necessity Statement*: Patient will be admitted to the hospital with hyperglycemia, UTI and hyponatremia requiring greater than 2 midnights in hospital Coding Level of Care Code 40350 Diagnoses Acute cystitis with hematuria N30.01 Acute dehydration E86.0 Type 2 diabetes mellitus E11.9 Morbid obesity E66.01 Time Spent (min) 70
[2024-11-26 21:03] VITALS: BP 95/69; PULSE 97; RESP 17; TEMP 38.7; O2SAT 94
[2024-11-26 21:36] LABS: Glucose Point of Care 369 mg/dL (70-110)
[2024-11-26] MEDS: fluconazole 100 mg Tablet 200 MG PO (21:54)
[2024-11-26] MEDS: fluoxetine 20 mg Capsule PO (21:54)
[2024-11-26] MEDS: acetaminophen 500 mg Tablet 1000 MG PO (21:54)
[2024-11-26] MEDS: enoxaparin 40 mg/0.4 mL Syringe SUBCUT (21:57)
[2024-11-26 21:58] LABS: Magnesium 1.5 mg/dL (1.7-2.3); Phosphorus 1.9 mg/dL (2.5-4.5)
[2024-11-26] MEDS: insulin glargine 100 units/1 mL 10 UNIT SUBCUT (21:58)
[2024-11-26] MEDS: insulin lispro 100 unit/1 mL SUBCUT (21:58)
[2024-11-26] MEDS: sodium chlor 0.9% + KCl 20 mEq 20 MEQ/1,000 ML BAG 100 MEQ IV (22:03)
[2024-11-26 22:21] LABS: Glucose Point of Care 395 mg/dL (70-110)
[2024-11-26 23:56] LABS: Estmated Average Glucose 272; Hemoglobin A1C 11.1 % (4.0-6.0)
[2024-11-27] VITALS (7 sets, daily range): BP systolic 119–159; BP diastolic 68–88; PULSE 83–98; RESP 14–18; TEMP 36.8–38.7; O2SAT 92–96
[2024-11-27] MEDS: ATORVASTATIN 10 MG TABLET PO (05:07)
[2024-11-27] MEDS: lisinopril 10 mg Tablet PO (05:07)
[2024-11-27 05:44] LABS: Basophils # 0.1 10^3/uL (0.0-0.1); Basophils % 0.3 %; Hematocrit 39.5 % (37-53); Lymphocytes # 0.6 10^3/uL (0.8-4.8); Lymphocytes % 3.3 %; Mean Corpuscular HGB Conc 32.2 g/dL (30-55); Mean Corpuscular Hemoglobin 28.7 pg (27-33); Mean Corpuscular Volume 89.2 fl (82-101); Mean Platelet Volume 11.7 fL (7.4-10.4); Monocytes # 1.3 10^3/uL (0.2-0.9); Monocytes % 7.3 %; Neutrophils # 15.32 10^3/uL (1.8-7.7); Nucleated Red Blood Cells % 0 %; Platelet Count 228 10^3/cmm (157-399); Red Blood Count 4.43 10^6/uL (3.85-5.65); Red Cell Distribution Width 13.3 % (12.1-15.1); White Blood Count 17.42 10^3/uL (3.29-11.43)
[2024-11-27 06:08] LABS: Anion Gap 17.5 (5-19); Blood Urea Nitrogen 11 mg/dL (6-20); Calcium 7.8 mg/dL (8.5-10.5); Carbon Dioxide 18 mmol/L (22-29); Chloride 95 mmol/L (98-107); Creatinine Clr Calc Pharmacy 234.1878; Glucose 371 mg/dL (65-115); Osmolality Calculated 277 mOsm/kg (285-295); Potassium 4.5 mmol/L (3.5-5.1); Sodium 126 mmol/L (136-145)
[2024-11-27] MEDS: insulin lispro 100 unit/1 mL SUBCUT ×4 (08:02→22:19)
[2024-11-27] MEDS: metformin 500 mg Tablet 1000 MG PO (08:02)
[2024-11-27] MEDS: cefTRIAXone 2,000 mg SDV 2000 MG IVP (08:02)
[2024-11-27] MEDS: sodium chlor 0.9% + KCl 20 mEq 20 MEQ/1,000 ML BAG 100 MEQ IV (08:03)
[2024-11-27] MEDS: fluconazole 100 mg Tablet 200 MG PO (08:03)
[2024-11-27] MEDS: fluoxetine 20 mg Capsule PO (08:03)
[2024-11-27] MEDS: sitagliptin 100 mg Tablet 25 MG PO (08:09)
[2024-11-27] MEDS: nystatin powder 15 gm Btl 1 APPLIC TOPICAL ×2 (08:09→17:51)
[2024-11-27 09:30] LABS: C.Diff PCR (Lab) NEGATIVE (Negative)
--- NOTE | 2024-11-27 09:39 | PC.PHAR ---
Pt verified 5 medications and states he no longer takes the following: Januvia 25mg daily 07/06/24 Linezolid 600mg bid 07/06/24 Linsinopril 10mg qam 05/08/24 Metformin 1,000mg bid 05/08/24 Pot. Chl. ER 10meq 06/04/24 removed from pt chart
--- NOTE | 2024-11-27 09:47 | PC.CHAP ---
Pastoral Care Encounter/Spiritual Assessment Type of Contact [] Declined school psychology specialist visit [] Patient/Family/Request visit [] Outpatient visit [] Follow-up visit [] Physician referral [] Code/Alert [] Routine visit [] Staff referral [] Actively dying [x] Patient sleeping [] Family support [] [] Out of room [] Palliative care [] [] Receiving care in room [] Pre-surgical visit [] Trauma [] Long length of stay [] ICU visit [] Other: Relational/Emotional Strength [] Patient feels connected with others/family/visitors/staff [] Distress [] Loneliness/isolation [] Abandonment Spirituality of Patient [] Person of Caitlyn [] Attends Jain of their Caitlyn [] Believes in Prayer [] Reads Bible or Latter Day materials [] There are Spiritual issues to be addressed Chiller Operator Interventions [] Prayer [] Active listening [] Non-anxious presence [] Spiritual/emotional support [] Crisis/trauma care [] Spiritual counseling [] Bereavement support [] Provided bereavement packet [] Provided Bible/devotional materials [] Provided toy/stuffed animal, coloring book to patient or family member [] Provided Communion [] Anointing/Ethel [] Salvation [] Completed spiritual assessment [] Other: Impact on Illness or Injury [] Angry [] Fearful [] Anxious [] Often cries [] Exhaustion [] Unable to work [] Unable to attend hoahaoism [] Unable to walk/stand [] Unable to read [] Unable to drive [] Unable to eat/drink [] Unable to sleep [] Unable to be with family [] Patient intubated [] Other: Summary Time spent with patient
[2024-11-27 10:06] LABS: Amphetamines Screen Urine Negative (Negative); Barbiturates Screen Urine Negative (Negative); Benzodiazepines Screen Urine Negative (Negative); Cocaine Screen Urine Negative (Negative); PCP Screen Urine Negative (Negative); THC Screen Urine Negative (Negative)
[2024-11-27 10:07] LABS: Opiate Screen Urine Negative (Negative)
[2024-11-27 10:16] LABS: Procalcitonin 1.37 ng/mL (0-0.5); Thyroid Stimulating Hormone 0.85 uIU/mL (0.27-4.20); Vitamin B12 375 pg/mL (232-1245)
[2024-11-27 10:27] LABS: Iron 18 ug/dL (59-158); Percent Saturation 9.1 % (20-50); Total Iron Binding Capacity 196 mcg/dl; Unsaturated Iron Binding 178 ug/dL (112-347)
[2024-11-27] MEDS: sodium chloride 0.9% 1,000 ML 100 ML IV ×2 (10:40→17:52)
[2024-11-27] MEDS: piperacillin-tazobactam 3.375 GM in sodium chloride 0.9% (plus) 50 ML IV ×2 (10:40→17:51)
[2024-11-27 11:12] LABS: Glucose Point of Care 388 mg/dL (70-110)
[2024-11-27 12:40] LABS: Ketone (Acetest) Serum Negative (Negative)
--- NOTE | 2024-11-27 12:46 | P.PN_ITS ---
Subjective 2 Subjective: Admitted overnight. Today morning patient seen laying comfortably in bed. Seems to be drowsy. States he is feeling extremely weak. Complaining of dysuria. Denies any nausea, vomiting, headache. States he is having multiple soft bowel movements but denies any diarrhea. States he usually is able to walk around few times a day by himself. Blood sugars lately at home have been more than 300. Takes Ozempic and glipizide at home. Vitals/I&O/Wt Last Vital Signs Temp 98.3 F 11/27/24 11:25 Pulse 95 11/27/24 11:25 Resp 16 11/27/24 11:25 BP 150/82 11/27/24 11:25 Pulse Ox 92 11/27/24 11:25 O2 Del Method Room Air 11/27/24 11:25 11/26/24 11/27/24 11/27/24 22:59 06:59 14:59 Intake Total 1500 / 1500 1380 / 1380 Output Total 700 / 700 Balance 1500 / 1500 680 / 680 Weight last 48 hrs Weight 221.807 kg Weight 221.807 kg Weight 219.992 kg Physical Exam 2 Narrative: General well-developed morbidly obese male fatigued lethargic but alert and oriented and pleasant CV regular rate and rhythm Lungs clear to auscultation bilaterally Abdomen positive bowel sounds obese not tender next line back I could not have the patient sit up or roll over to check his back but sides on exam are not tender. Calves trace to 1+ at edema with some chronic venous stasis changes Skin he has erythema and moistness underneath his left breast fold. Left groin limited examination was not erythematous or yeasty. Oral Mallampati 3 or 4 Const: COMMON NORMALS: patient oriented x3 GENERAL APPEARANCE: cooperative, disheveled, lethargic and appears older than stated age NUTRITIONAL APPEARANCE: obese ORIENTATION/CONSCIOUSNESS: Yes awake, Yes oriented to person, Yes oriented to place, Yes oriented to time and Yes lethargic Neuro: COMMON NORMALS: patient oriented x3 SENSORIUM/ORIENTATION: Yes oriented to person, Yes oriented to place, Yes oriented to time and Yes lethargic Data 11/27/24 05:24 11/27/24 05:24 Micro: Microbiology 11/26/24 17:58 Blood Culture - Preliminary Blood SPECIMEN COLLECTED 11/26/24 18:30 Urine Culture - Preliminary Urine,Clean Catch Gram Negative Rods 11/26/24 17:51 Blood Culture - Preliminary Blood SPECIMEN COLLECTED A&P Assessment and plan (1) Acute cystitis with hematuria: Most likely reason of tiredness and weakness. Follow-up blood culture, urine culture. Trend procalcitonin. Currently on IV ceftriaxone. White count trending up. For now we will switch to IV Zosyn. If white count continues to trend up we will plan for CT abdomen pelvis to rule out obstructive nephropathy. (2) Acute dehydration: Continue with fluid hydration. Most likely along with uncontrolled hyperglycemia. NS at 100 cc/h. (3) High anion gap metabolic acidosis: (4) Uncontrolled type 2 diabetes mellitus: Uncontrolled type 2 diabetes mellitus with A1c of more than 11. Concerns for possible DKA because of high anion gap metabolic acidosis. Check ketones. If ketones negative for now we will continue with insulin sliding scale but will change to moderate dose protocol. Continue with Lantus 10 units nightly. Will uptitrate depending on insulin requirement in next 24 hours. If ketones positive we will transition to ICU for insulin drip. Check lipid panel. (5) Generalized weakness: Will plan for physical therapy next 24 hours. (6) Morbid obesity: 2200-calorie ADA diet Plan Hyponatremia: Most likely combination of pseudohyponatremia because of hyperglycemia along with dehydration. Continue with IV fluids and blood sugar control as above. Monitor BMP in afternoon. Hypertension: Goal blood pressure less than 140/90 mmHg. Takes lisinopril 10 mg oral daily at home. Increase to 20 mg daily for now. Uptitrate as per goal blood pressure. Full code Carb consistent diet Lovenox for DVT prophylaxis Famotidine for PUD prophylaxis PDMP PDMP Reviewed: Not Reviewed Attestations 2 Medical Necessity Statement*: Requires further hospitalization for management of weakness and lethargy because of cystitis, uncontrolled type 2 diabetes mellitus in a morbidly obese gentleman Diagnoses Acute cystitis with hematuria N30.01 Acute dehydration E86.0 High anion gap metabolic acidosis E87.29 Uncontrolled type 2 diabetes mellitus Generalized weakness R53.1 Morbid obesity E66.01
[2024-11-27 15:30] LABS: Blood Urea Nitrogen 10 mg/dL (6-20); Calcium 7.6 mg/dL (8.5-10.5); Carbon Dioxide 21 mmol/L (22-29); Chloride 91 mmol/L (98-107); Creatinine Clr Calc Pharmacy 234.1878; Glucose 366 mg/dL (65-115); Osmolality Calculated 268 mOsm/kg (285-295); Sodium 122 mmol/L (136-145)
[2024-11-27 15:35] LABS: Anion Gap 13.6 (5-19); Potassium 3.6 mmol/L (3.5-5.1)
[2024-11-27 16:22] LABS: Glucose Point of Care 361 mg/dL (70-110)
[2024-11-27 16:23] LABS: Creatine Phosphokinase 600 U/L (39-308)
[2024-11-27] MEDS: acetaminophen 325 mg Tablet 650 MG PO (17:50)
[2024-11-27 20:47] LABS: Glucose Point of Care 435 mg/dL (70-110)
[2024-11-27] MEDS: insulin glargine 100 units/1 mL 10 UNIT SUBCUT (22:18)
[2024-11-27] MEDS: enoxaparin 40 mg/0.4 mL Syringe SUBCUT (22:18)
[2024-11-28] VITALS (7 sets, daily range): BP systolic 118–146; BP diastolic 74–95; PULSE 77–86; RESP 16–18; TEMP 36.9–38.1; O2SAT 92–95
[2024-11-28] MEDS: sodium chloride 0.9% 1,000 ML 100 ML IV ×3 (01:01→15:38)
[2024-11-28] MEDS: piperacillin-tazobactam 3.375 GM in sodium chloride 0.9% (plus) 50 ML IV ×3 (01:01→17:00)
[2024-11-28] MEDS: acetaminophen 325 mg Tablet 650 MG PO ×2 (01:40→17:04)
[2024-11-28] MEDS: lisinopril 10 mg Tablet 20 MG PO (05:04)
[2024-11-28 05:51] LABS: Basophils % 0.2 %; Hematocrit 36.9 % (37-53); Lymphocytes # 0.7 10^3/uL (0.8-4.8); Lymphocytes % 5.1 %; Mean Corpuscular HGB Conc 33.1 g/dL (30-55); Mean Corpuscular Hemoglobin 28.4 pg (27-33); Mean Corpuscular Volume 85.8 fl (82-101); Mean Platelet Volume 11.8 fL (7.4-10.4); Monocytes # 0.8 10^3/uL (0.2-0.9); Monocytes % 6.5 %; Neutrophils # 11.23 10^3/uL (1.8-7.7); Neutrophils % 86.8 %; Nucleated Red Blood Cells % 0 %; Platelet Count 205 10^3/cmm (157-399); Red Cell Distribution Width 13.6 % (12.1-15.1); White Blood Count 12.94 10^3/uL (3.29-11.43)
[2024-11-28 06:13] LABS: Alanine Aminotransferase 17 U/L (0-41); Albumin Level 2.6 g/dL (3.5-5.2); Alkaline Phosphatase 96 U/L (40-130); Anion Gap 16.6 (5-19); Aspartate Amino Transferase 29 U/L (0-40); Blood Urea Nitrogen 12 mg/dL (6-20); Calcium 7.8 mg/dL (8.5-10.5); Carbon Dioxide 19 mmol/L (22-29); Chloride 96 mmol/L (98-107); Creatinine Clr Calc Pharmacy 232.8194; Globulin 4.4 g/dL (1.3-4.6); Glucose 376 mg/dL (65-115); Magnesium 1.6 mg/dL (1.7-2.3); Osmolality Calculated 281 mOsm/kg (285-295); Potassium 3.6 mmol/L (3.5-5.1); Sodium 128 mmol/L (136-145); Total Bilirubin 0.5 mg/dL (0.15-1.2)
[2024-11-28 06:18] LABS: Glucose Point of Care 389 mg/dL (70-110)
[2024-11-28 06:22] LABS: Chol HDL Ratio 3.96 mg/dL (1.0-5.00); Cholesterol 103 mg/dL (0-200); HDL Cholesterol 26 mg/dL (60-100); LDL Cholesterol Calculated 56 mg/dL (50-129); Triglycerides 107 mg/dL (0-150); VLDL Cholestrol Calculation 21 mg/dL (0-30)
[2024-11-28 06:29] LABS: Folate Level 11.8 ng/mL (4.5-32.2)
[2024-11-28] MEDS: fluconazole 100 mg Tablet 200 MG PO (07:54)
[2024-11-28] MEDS: insulin lispro 100 unit/1 mL SUBCUT ×4 (07:54→21:04)
[2024-11-28] MEDS: nystatin powder 15 gm Btl 1 APPLIC TOPICAL ×2 (07:55→17:01)
--- NOTE | 2024-11-28 08:28 | XR_ITS ---
WS: [id number] Right foot, AP and lateral views, 11/28/2024 Clinical Data: Possible osteo Comparison: Right foot, 07/03/2023 Findings: No fractures or dislocations are seen. No bone destruction or erosion is noted. 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 There is swelling and abundant soft tissue surrounding the distal right leg and the entire foot. The articulation between the base of the right fifth metatarsal and cuboid shows lateral subluxation of the base of the right fifth metatarsal unchanged. XR/XR foot RT 2V 23619 Impression: 1. Tarsal osteoarthritis unchanged. 2. Subluxation of the articulation between the fifth metatarsal and the cuboid. 3. Soft tissue and soft tissue swelling surrounding the distal right leg and ri ght foot unchanged.
--- NOTE | 2024-11-28 09:30 | P.PN_ITS ---
Subjective 2 Subjective: No acute events overnight. Patient states he is feeling slightly better. Denies any nausea, vomiting, headache. States weakness is improving. Tmax in last 24 hours 101.7 Fahrenheit yesterday afternoon. Vitals/I&O/Wt Last Vital Signs Temp 99.8 F H 11/28/24 07:36 Pulse 77 11/28/24 07:36 Resp 18 11/28/24 07:36 BP 129/78 11/28/24 07:36 Pulse Ox 94 11/28/24 07:36 O2 Del Method Room Air 11/28/24 07:36 11/27/24 11/28/24 11/28/24 22:59 06:59 14:59 Intake Total 1100 / 2960 1030 / 3990 690 / 690 Output Total 300 / 1000 Balance 800 / 1960 1030 / 2990 690 / 690 Weight last 48 hrs Weight 219.992 kg Weight 221.807 kg Weight 221.807 kg Weight 219.992 kg Physical Exam 2 Narrative: General well-developed morbidly obese male fatigued lethargic but alert and oriented and pleasant CV regular rate and rhythm Lungs clear to auscultation bilaterally Abdomen positive bowel sounds obese not tender next line back I could not have the patient sit up or roll over to check his back but sides on exam are not tender. Calves trace to 1+ at edema with some chronic venous stasis changes Skin he has erythema and moistness underneath his left breast fold. Left groin limited examination was not erythematous or yeasty. Oral Mallampati 3 or 4 Const: COMMON NORMALS: patient oriented x3 GENERAL APPEARANCE: cooperative, disheveled, lethargic and appears older than stated age NUTRITIONAL APPEARANCE: obese ORIENTATION/CONSCIOUSNESS: Yes awake, Yes oriented to person, Yes oriented to place, Yes oriented to time and Yes lethargic Neuro: COMMON NORMALS: patient oriented x3 SENSORIUM/ORIENTATION: Yes oriented to person, Yes oriented to place, Yes oriented to time and Yes lethargic Data 11/28/24 05:00 11/28/24 05:00 Micro: Microbiology 11/28/24 05:00 Blood Culture - Preliminary Blood SPECIMEN COLLECTED 11/28/24 05:06 Blood Culture - Preliminary Blood SPECIMEN COLLECTED 11/26/24 17:51 Blood Culture - Preliminary Blood NEGATIVE TO DATE 11/26/24 17:58 Blood Culture - Preliminary Blood Escherichia coli 11/26/24 18:30 Urine Culture - Preliminary Urine,Clean Catch Gram Negative Rods A&P Assessment and plan (1) Acute cystitis with hematuria: Most likely reason of tiredness and weakness. Blood cultures growing E. coli, urine cultures growing gram-negative rods. Trend procalcitonin. White count trending down. Continue with IV Zosyn. (2) E. coli bacteremia: Blood cultures from admission 1 out of 3 bottles positive for E. coli. Sensitivities awaited. Repeat blood culture sent on 11/28. Continue with antibiotic as above. Patient will most likely need at least 10 days of antibiotics IV versus oral depending on sensitivities after negative blood cultures. (3) Acute dehydration: Continue with fluid hydration. Most likely along with uncontrolled hyperglycemia. CPK elevated. NS at 150 cc/h. (4) High anion gap metabolic acidosis: (5) Uncontrolled type 2 diabetes mellitus: Uncontrolled type 2 diabetes mellitus with A1c of more than 11. DKA ruled out. Blood sugars continue to remain elevated. Increase Lantus to 15 units every 12 hourly. Continue with sliding scale at moderate dose protocol. Patient will most likely to be discharged on insulin. (6) Generalized weakness: Will plan for physical therapy next 24 hours. (7) Morbid obesity: 2200-calorie ADA diet (8) Hyponatremia: Plan Hyponatremia: Improving. Most likely combination of pseudohyponatremia because of hyperglycemia along with dehydration. Continue with IV fluids and blood sugar control as above. Monitor BMP in afternoon. Hypertension: Goal blood pressure less than 140/90 mmHg. Blood pressure is better controlled. Continue with lisinopril 20 mg oral daily. Uptitrate as per goal blood pressure. Out of bed to chair. Physical therapy. Full code Carb consistent diet Lovenox for DVT prophylaxis Famotidine for PUD prophylaxis PDMP PDMP Reviewed: Not Reviewed Attestations 2 Medical Necessity Statement*: Requires further hospitalization for management of E. coli bacteremia, UTI in setting of uncontrolled type 2 diabetes mellitus, moderate obesity, hyponatremia due to dehydration Diagnoses Acute cystitis with hematuria N30.01 E. coli bacteremia R78.81; B96.20 Acute dehydration E86.0 High anion gap metabolic acidosis E87.29 Uncontrolled type 2 diabetes mellitus Generalized weakness R53.1 Morbid obesity E66.01 Hyponatremia E87.1
[2024-11-28 09:40] LABS: Potassium, Radom Urine 14 mmol/L; Urine Random Chloride 27 mmol/L
[2024-11-28 09:48] LABS: Urine Random Sodium 16 mmol/L
[2024-11-28] MEDS: insulin glargine 100 units/1 mL 15 UNIT SUBCUT ×2 (10:36→21:05)
[2024-11-28 11:31] LABS: Glucose Point of Care 298 mg/dL (70-110)
[2024-11-28 16:21] LABS: Anion Gap 14.7 (5-19); Blood Urea Nitrogen 12 mg/dL (6-20); Calcium 7.9 mg/dL (8.5-10.5); Carbon Dioxide 22 mmol/L (22-29); Chloride 96 mmol/L (98-107); Creatinine Clr Calc Pharmacy 181.0817; Glomerular Filtration Rate 91.3 mL/min (90-130); Glucose 338 mg/dL (65-115); Osmolality Calculated 281 mOsm/kg (285-295); Potassium 3.7 mmol/L (3.5-5.1); Sodium 129 mmol/L (136-145)
[2024-11-28 16:37] LABS: Glucose Point of Care 334 mg/dL (70-110)
[2024-11-28] MEDS: famotidine 20 mg Tablet PO (17:01)
[2024-11-28 20:41] LABS: Glucose Point of Care 318 mg/dL (70-110)
[2024-11-28] MEDS: enoxaparin 40 mg/0.4 mL Syringe SUBCUT (21:05)
[2024-11-28] MEDS: sodium chloride 0.9% 1,000 ML 150 ML IV (22:53)
[2024-11-29] VITALS: BP 143/83; PULSE 76; RESP 16; TEMP 36.7; O2SAT 96
[2024-11-29] MEDS: piperacillin-tazobactam 3.375 GM in sodium chloride 0.9% (plus) 50 ML IV ×3 (01:25→17:13)
[2024-11-29 04:00] VITALS: BP 129/81; PULSE 82; RESP 16; TEMP 37.3; O2SAT 94
[2024-11-29 05:00] LABS: Basophils % 0.2 %; Hematocrit 35.7 % (37-53); Lymphocytes # 0.8 10^3/uL (0.8-4.8); Lymphocytes % 9.9 %; Mean Corpuscular HGB Conc 32.5 g/dL (30-55); Mean Corpuscular Volume 86.2 fl (82-101); Mean Platelet Volume 12.1 fL (7.4-10.4); Monocytes # 0.9 10^3/uL (0.2-0.9); Monocytes % 11.4 %; Neutrophils # 6.23 10^3/uL (1.8-7.7); Neutrophils % 77.3 %; Nucleated Red Blood Cells % 0 %; Platelet Count 189 10^3/cmm (157-399); Red Blood Count 4.14 10^6/uL (3.85-5.65); Red Cell Distribution Width 13.6 % (12.1-15.1); White Blood Count 8.07 10^3/uL (3.29-11.43)
[2024-11-29 05:25] LABS: Alanine Aminotransferase 20 U/L (0-41); Albumin Level 2.7 g/dL (3.5-5.2); Alkaline Phosphatase 84 U/L (40-130); Anion Gap 16.5 (5-19); Aspartate Amino Transferase 29 U/L (0-40); Blood Urea Nitrogen 13 mg/dL (6-20); Calcium 7.2 mg/dL (8.5-10.5); Carbon Dioxide 18 mmol/L (22-29); Chloride 100 mmol/L (98-107); Creatinine Clr Calc Pharmacy 232.8194; Globulin 3.4 g/dL (1.3-4.6); Glucose 257 mg/dL (65-115); Osmolality Calculated 281 mOsm/kg (285-295); Potassium 3.5 mmol/L (3.5-5.1); Sodium 131 mmol/L (136-145); Total Bilirubin 0.3 mg/dL (0.15-1.2); Total Protein 6.1 g/dL (6.6-8.7)
[2024-11-29 05:26] LABS: Magnesium 1.5 mg/dL (1.7-2.3)
[2024-11-29] MEDS: sodium chloride 0.9% 1,000 ML 150 ML IV ×3 (05:31→21:44)
[2024-11-29] MEDS: lisinopril 10 mg Tablet 20 MG PO (05:31)
[2024-11-29 06:53] LABS: Glucose Point of Care 247 mg/dL (70-110)
[2024-11-29 07:31] VITALS: BP 150/85; PULSE 75; RESP 20; TEMP 37.3; O2SAT 92
[2024-11-29] MEDS: fluconazole 100 mg Tablet 200 MG PO (09:04)
[2024-11-29] MEDS: famotidine 20 mg Tablet PO ×2 (09:04→17:12)
[2024-11-29] MEDS: insulin lispro 100 unit/1 mL SUBCUT ×4 (09:04→21:43)
[2024-11-29] MEDS: nystatin powder 15 gm Btl 1 APPLIC TOPICAL ×2 (09:05→17:13)
[2024-11-29] MEDS: insulin glargine 100 units/1 mL 15 UNIT SUBCUT (09:05)
[2024-11-29] MEDS: magnesium sulfate premix 2 GM/50 ML PIGGYBACK IV (10:48)
--- NOTE | 2024-11-29 11:09 | P.PN_ITS ---
Subjective 2 Subjective: No acute events overnight. Patient states he is feeling better but still fairly weak. Able to ambulate in the room. Did sit up in the chair as per nursing staff. Has remained hemodynamically stable. Tmax in last 24 hours 100.5 Fahrenheit. Vitals/I&O/Wt Last Vital Signs Temp 99.2 F 11/29/24 07:31 Pulse 75 11/29/24 07:31 Resp 20 H 11/29/24 07:31 BP 150/85 11/29/24 07:31 Pulse Ox 92 11/29/24 07:31 O2 Del Method Room Air 11/29/24 07:31 11/28/24 11/29/24 11/29/24 22:59 06:59 14:59 Intake Total 2356.667 / 4676.667 1525 / 6201.667 360 / 360 Balance 2356.667 / 3476.667 1525 / 5001.667 360 / 360 Weight last 48 hrs Weight 220.174 kg Weight 219.992 kg Physical Exam 2 Narrative: General well-developed morbidly obese male fatigued alert and oriented and pleasant CV regular rate and rhythm Lungs clear to auscultation bilaterally Abdomen positive bowel sounds obese not tender, no renal angle tenderness Calves trace to 1+ at edema with some chronic venous stasis changes Skin he has erythema and moistness underneath his left breast fold. Left groin limited examination was not erythematous or yeasty. Const: COMMON NORMALS: patient oriented x3 GENERAL APPEARANCE: cooperative, disheveled, lethargic and appears older than stated age NUTRITIONAL APPEARANCE: obese ORIENTATION/CONSCIOUSNESS: Yes awake, Yes oriented to person, Yes oriented to place, Yes oriented to time and Yes lethargic Neuro: COMMON NORMALS: patient oriented x3 SENSORIUM/ORIENTATION: Yes oriented to person, Yes oriented to place, Yes oriented to time and Yes lethargic Data 11/29/24 04:43 11/29/24 04:43 Micro: Microbiology 11/26/24 17:58 Blood Culture - Preliminary Blood Escherichia coli 11/28/24 05:06 Blood Culture - Preliminary Blood NEGATIVE TO DATE 11/28/24 05:00 Blood Culture - Preliminary Blood NEGATIVE TO DATE 11/26/24 18:30 Urine Culture - Final Urine,Clean Catch Escherichia coli A&P Assessment and plan (1) Acute cystitis with hematuria: Most likely reason of tiredness and weakness. Blood cultures growing E. coli, urine cultures growing gram-negative rods. Trend procalcitonin. White count trending down. Continue with IV Zosyn. (2) E. coli bacteremia: Blood cultures from admission 1 out of 3 bottles positive for E. coli. Sensitivities awaited. Repeat blood culture sent on 11/28. Continue with antibiotic as above. Patient will most likely need at least 10 days of antibiotics IV versus oral depending on sensitivities after negative blood cultures. (3) Sepsis: Present on admission. My sepsis SIRS: Tachycardic, Febrile, Leukocytosis Source: Cystitis End organ damage: Acute infectious encephalopathy, metabolic acidosis with hyponatremia Lactic acid within normal limits Patient did not receive full 30 mL/kg BW as to not further worsen edema and concerns for CHF. (4) Acute dehydration: Continue with fluid hydration. Most likely along with uncontrolled hyperglycemia. CPK elevated. NS at 150 cc/h. (5) High anion gap metabolic acidosis: (6) Uncontrolled type 2 diabetes mellitus: Uncontrolled type 2 diabetes mellitus with A1c of more than 11. DKA ruled out. Blood sugars continue to remain elevated. Increase Lantus to 15 units every 12 hourly. Continue with sliding scale at moderate dose protocol. Patient will most likely to be discharged on insulin. (7) Generalized weakness: Will plan for physical therapy next 24 hours. (8) Morbid obesity: 2200-calorie ADA diet (9) Hyponatremia: Plan Hyponatremia: Improving. Most likely combination of pseudohyponatremia because of hyperglycemia along with dehydration. Continue with IV fluids and blood sugar control as above. Monitor BMP in afternoon. Hypertension: Goal blood pressure less than 140/90 mmHg. Blood pressure is better controlled. Continue with lisinopril 20 mg oral daily. Uptitrate as per goal blood pressure. Out of bed to chair. Physical therapy. Full code Carb consistent diet Lovenox for DVT prophylaxis Famotidine for PUD prophylaxis Plan for the day: Continue with current IV antibiotics. Appreciate blood culture and urine culture growing E. coli. Appreciate sensitivities. Repeat blood cultures so far negative. Patient will need overall 14 days of antibiotics. Will transition to oral Levaquin on discharge. Blood sugars better controlled but still elevated. Continue with insulin sliding scale at current dose. Increase Lantus to 20 units twice daily. Discussed with the patient regarding need for insulin on discharge and he is agreeable. Out of bed to chair. Continue IV fluids at current rate. PDMP PDMP Reviewed: Not Reviewed Attestations 2 Medical Necessity Statement*: Requires further hospitalization for management of sepsis due to E. coli bacteremia, cystitis in a morbidly obese male with uncontrolled type 2 diabetes mellitus. Diagnoses Acute cystitis with hematuria N30.01 E. coli bacteremia R78.81; B96.20 Sepsis A41.9 Acute dehydration E86.0 High anion gap metabolic acidosis E87.29 Uncontrolled type 2 diabetes mellitus Generalized weakness R53.1 Morbid obesity E66.01 Hyponatremia E87.1
[2024-11-29 11:15] VITALS: BP 150/80; PULSE 70; RESP 18; TEMP 36.9; O2SAT 92
[2024-11-29 11:18] LABS: Glucose Point of Care 260 mg/dL (70-110)
[2024-11-29 15:28] VITALS: BP 167/97; PULSE 73; RESP 18; TEMP 36.8; O2SAT 97
[2024-11-29 20:26] LABS: Glucose Point of Care 235 mg/dL (70-110)
[2024-11-29 20:26] LABS: Glucose Point of Care 315 mg/dL (70-110)
[2024-11-29] MEDS: insulin glargine 100 units/1 mL 20 UNIT SUBCUT (21:43)
[2024-11-29] MEDS: enoxaparin 40 mg/0.4 mL Syringe SUBCUT (21:43)
[2024-11-29 22:06] VITALS: BP 149/87; PULSE 77; RESP 16; TEMP 37.9; O2SAT 95
[2024-11-30] VITALS (7 sets, daily range): BP systolic 143–167; BP diastolic 50–93; PULSE 60–74; RESP 17–19; TEMP 36.6–37; O2SAT 94–96
[2024-11-30] MEDS: acetaminophen 325 mg Tablet 650 MG PO (00:42)
[2024-11-30] MEDS: piperacillin-tazobactam 3.375 GM in sodium chloride 0.9% (plus) 50 ML IV ×3 (02:18→17:16)
[2024-11-30] MEDS: benzonatate 100 mg Capsule PO (03:30)
[2024-11-30 04:44] LABS: Basophils % 0.3 %; Eosinophils % 0.1 %; Hematocrit 36.4 % (37-53); Lymphocytes % 13.9 %; Mean Corpuscular Hemoglobin 28.7 pg (27-33); Mean Corpuscular Volume 87.1 fl (82-101); Mean Platelet Volume 12.1 fL (7.4-10.4); Monocytes % 13.7 %; Neutrophils # 5.24 10^3/uL (1.8-7.7); Neutrophils % 70.7 %; Nucleated Red Blood Cells % 0 %; Platelet Count 215 10^3/cmm (157-399); Red Blood Count 4.18 10^6/uL (3.85-5.65); Red Cell Distribution Width 13.9 % (12.1-15.1); White Blood Count 7.42 10^3/uL (3.29-11.43)
[2024-11-30 04:45] LABS: Magnesium 1.8 mg/dL (1.7-2.3)
[2024-11-30 04:48] LABS: Alanine Aminotransferase 32 U/L (0-41); Albumin Level 2.8 g/dL (3.5-5.2); Alkaline Phosphatase 91 U/L (40-130); Anion Gap 15.3 (5-19); Aspartate Amino Transferase 44 U/L (0-40); Blood Urea Nitrogen 11 mg/dL (6-20); Carbon Dioxide 20 mmol/L (22-29); Chloride 102 mmol/L (98-107); Creatinine Clr Calc Pharmacy 271.7827; Globulin 4.1 g/dL (1.3-4.6); Glomerular Filtration Rate 145.7 mL/min (90-130); Glucose 258 mg/dL (65-115); Osmolality Calculated 286 mOsm/kg (285-295); Potassium 3.3 mmol/L (3.5-5.1); Sodium 134 mmol/L (136-145); Total Bilirubin 0.3 mg/dL (0.15-1.2); Total Protein 6.9 g/dL (6.6-8.7)
[2024-11-30] MEDS: lisinopril 10 mg Tablet 20 MG PO (05:10)
[2024-11-30] MEDS: fluconazole 100 mg Tablet 200 MG PO (08:24)
[2024-11-30] MEDS: famotidine 20 mg Tablet PO ×2 (08:24→17:16)
[2024-11-30] MEDS: nystatin powder 15 gm Btl 1 APPLIC TOPICAL ×2 (08:25→17:21)
[2024-11-30 08:28] LABS: Glucose Point of Care 271 mg/dL (70-110)
[2024-11-30] MEDS: insulin lispro 100 unit/1 mL SUBCUT ×4 (09:03→21:12)
[2024-11-30] MEDS: insulin glargine 100 units/1 mL 20 UNIT SUBCUT (09:03)
[2024-11-30 10:49] LABS: Glucose Point of Care 258 mg/dL (70-110)
--- NOTE | 2024-11-30 12:14 | P.PN_ITS ---
Subjective 2 Subjective: No acute vents overnight. Today morning examination sitting up in bed. Having his meal. Denies any nausea, vomiting, headache. Tmax in last 24 hours 100.3 Fahrenheit overnight. Blood pressure slightly elevated. Vitals/I&O/Wt Last Vital Signs Temp 98.4 F 11/30/24 11:22 Pulse 65 11/30/24 11:22 Resp 19 H 11/30/24 11:22 BP 156/89 11/30/24 11:22 Pulse Ox 95 11/30/24 11:22 O2 Del Method Room Air 11/30/24 11:22 11/29/24 11/30/24 11/30/24 22:59 06:59 14:59 Intake Total 1890 / 3830 1360 / 5190 170 / 170 Balance 1890 / 3830 1360 / 5190 170 / 170 Weight last 48 hrs Weight 219.992 kg Weight 220.174 kg Physical Exam 2 Narrative: General well-developed morbidly obese male fatigued alert and oriented and pleasant CV regular rate and rhythm Lungs clear to auscultation bilaterally Abdomen positive bowel sounds obese not tender, no renal angle tenderness Calves trace to 1+ at edema with some chronic venous stasis changes Skin he has erythema and moistness underneath his left breast fold. Left groin limited examination was not erythematous or yeasty. Const: COMMON NORMALS: patient oriented x3 GENERAL APPEARANCE: cooperative, disheveled, lethargic and appears older than stated age NUTRITIONAL APPEARANCE: obese ORIENTATION/CONSCIOUSNESS: Yes awake, Yes oriented to person, Yes oriented to place, Yes oriented to time and Yes lethargic Neuro: COMMON NORMALS: patient oriented x3 SENSORIUM/ORIENTATION: Yes oriented to person, Yes oriented to place, Yes oriented to time and Yes lethargic Data 11/30/24 03:04 11/30/24 03:04 Micro: Microbiology 11/26/24 17:58 Blood Culture - Preliminary Blood Escherichia coli A&P Assessment and plan (1) Acute cystitis with hematuria: Most likely reason of tiredness and weakness. Blood cultures growing E. coli, urine cultures growing gram-negative rods. Trend procalcitonin. White count trending down. Continue with IV Zosyn. (2) E. coli bacteremia: Blood cultures from admission 1 out of 3 bottles positive for E. coli. Sensitivities awaited. Repeat blood culture sent on 11/28. Continue with antibiotic as above. Patient will most likely need at least 10 days of antibiotics IV versus oral depending on sensitivities after negative blood cultures. (3) Sepsis: Present on admission. My sepsis SIRS: Tachycardic, Febrile, Leukocytosis Source: Cystitis End organ damage: Acute infectious encephalopathy, metabolic acidosis with hyponatremia Lactic acid within normal limits Patient did not receive full 30 mL/kg BW as to not further worsen edema and concerns for CHF. (4) Acute dehydration: Continue with fluid hydration. Most likely along with uncontrolled hyperglycemia. CPK elevated. NS at 150 cc/h. (5) High anion gap metabolic acidosis: (6) Uncontrolled type 2 diabetes mellitus: Uncontrolled type 2 diabetes mellitus with A1c of more than 11. DKA ruled out. Blood sugars continue to remain elevated. Increase Lantus to 15 units every 12 hourly. Continue with sliding scale at moderate dose protocol. Patient will most likely to be discharged on insulin. (7) Generalized weakness: Will plan for physical therapy next 24 hours. (8) Morbid obesity: 2200-calorie ADA diet (9) Hyponatremia: Plan Hyponatremia: Improving. Most likely combination of pseudohyponatremia because of hyperglycemia along with dehydration. Continue with IV fluids and blood sugar control as above. Monitor BMP in afternoon. Hypertension: Goal blood pressure less than 140/90 mmHg. Blood pressure is better controlled. Continue with lisinopril 20 mg oral daily. Uptitrate as per goal blood pressure. Out of bed to chair. Physical therapy. Full code Carb consistent diet Lovenox for DVT prophylaxis Famotidine for PUD prophylaxis Plan for the day: Follow-up blood culture. Appreciate sensitivities. Continue with current IV antibiotics. Will transition to oral Levaquin 750 mg daily for overall 14 days from negative blood cultures on discharge. Daily fevers could be in setting of possible atelectasis given morbid obesity. Patient does not have any leukocytosis. Dysuria has resolved. Will start on incentive spirometry. Encouraged patient to do more incentive spirometry. He is agreeable. Overall received 76 units of insulin last 24 hours. Fasting blood sugars today in the morning still more than 250. Increased dose of Lantus to 30 units twice daily. Goal blood pressure less than 140/90 mmHg. Increase lisinopril to 30 mg oral daily. Discharge planning: Plan to discharge back home in next 24 hours the patient remains hemodynamically stable on oral antibiotics for 14 days. PDMP PDMP Reviewed: Not Reviewed Attestations 2 Medical Necessity Statement*: Requires further hospitalization for management of E. coli bacteremia in setting of UTI/cystitis in a patient who is morbidly obese, uncontrolled type 2 diabetes mellitus while his home dose of insulin and antihypertensives were adjusted Diagnoses Acute cystitis with hematuria N30.01 E. coli bacteremia R78.81; B96.20 Sepsis A41.9 Acute dehydration E86.0 High anion gap metabolic acidosis E87.29 Uncontrolled type 2 diabetes mellitus Generalized weakness R53.1 Morbid obesity E66.01 Hyponatremia E87.1
[2024-11-30 16:37] LABS: Glucose Point of Care 277 mg/dL (70-110)
[2024-11-30 20:49] LABS: Glucose Point of Care 309 mg/dL (70-110)
[2024-11-30] MEDS: enoxaparin 40 mg/0.4 mL Syringe SUBCUT (21:13)
[2024-11-30] MEDS: insulin glargine 100 units/1 mL 30 UNIT SUBCUT (21:13)
[2024-12-01] MEDS: piperacillin-tazobactam 3.375 GM in sodium chloride 0.9% (plus) 50 ML IV ×2 (01:09→09:07)
[2024-12-01 04:00] VITALS: BP 166/83; PULSE 66; RESP 18; TEMP 36.6; O2SAT 96
[2024-12-01] MEDS: lisinopril 10 mg Tablet 30 MG PO (05:20)
[2024-12-01 05:42] LABS: Basophils % 0.2 %; Eosinophils % 0.5 %; Lymphocytes # 1.5 10^3/uL (0.8-4.8); Lymphocytes % 18.1 %; Mean Corpuscular HGB Conc 32.2 g/dL (30-55); Mean Corpuscular Hemoglobin 28.3 pg (27-33); Mean Corpuscular Volume 88.1 fl (82-101); Mean Platelet Volume 11.5 fL (7.4-10.4); Monocytes # 0.8 10^3/uL (0.2-0.9); Monocytes % 9.1 %; Neutrophils # 5.88 10^3/uL (1.8-7.7); Neutrophils % 70.5 %; Nucleated Red Blood Cells % 0 %; Platelet Count 201 10^3/cmm (157-399); White Blood Count 8.34 10^3/uL (3.29-11.43)
[2024-12-01 05:56] LABS: Magnesium 1.7 mg/dL (1.7-2.3)
[2024-12-01 05:58] LABS: Alanine Aminotransferase 45 U/L (0-41); Albumin Level 2.7 g/dL (3.5-5.2); Alkaline Phosphatase 104 U/L (40-130); Anion Gap 14.6 (5-19); Aspartate Amino Transferase 51 U/L (0-40); Blood Urea Nitrogen 10 mg/dL (6-20); Calcium 8.1 mg/dL (8.5-10.5); Carbon Dioxide 22 mmol/L (22-29); Chloride 103 mmol/L (98-107); Creatinine Clr Calc Pharmacy 325.9471; Globulin 4.1 g/dL (1.3-4.6); Glomerular Filtration Rate 179.8 mL/min (90-130); Glucose 265 mg/dL (65-115); Osmolality Calculated 290 mOsm/kg (285-295); Potassium 3.6 mmol/L (3.5-5.1); Sodium 136 mmol/L (136-145); Total Bilirubin 0.3 mg/dL (0.15-1.2); Total Protein 6.8 g/dL (6.6-8.7)
[2024-12-01 06:33] LABS: Glucose Point of Care 246 mg/dL (70-110)
[2024-12-01 07:30] VITALS: BP 159/89; PULSE 69; RESP 18; TEMP 37; O2SAT 95
[2024-12-01] MEDS: insulin lispro 100 unit/1 mL SUBCUT ×2 (09:06→11:31)
[2024-12-01] MEDS: insulin glargine 100 units/1 mL 30 UNIT SUBCUT (09:07)
[2024-12-01] MEDS: famotidine 20 mg Tablet PO (09:07)
[2024-12-01] MEDS: fluconazole 100 mg Tablet 200 MG PO (09:07)
[2024-12-01] MEDS: nystatin powder 15 gm Btl 1 APPLIC TOPICAL (09:08)
--- NOTE | 2024-12-01 10:38 | PM.DCS ---
Discharge Providers Date of Admission: 11/26/24 19:46 Date of Discharge: December 01, 2024 Attending Provider at Admission: Humberto Vázquez MD Attending Provider at Discharge: Garland Clay MD Primary Care Provider: Orestes Flores MD Diagnoses at Discharge Discharge Diagnosis (1) Acute cystitis with hematuria: Status: Acute (2) E. coli bacteremia: Status: Acute (3) Sepsis: Status: Acute (4) Acute dehydration: Status: Acute (5) High anion gap metabolic acidosis: Status: Acute (6) Uncontrolled type 2 diabetes mellitus: Status: Acute (7) Generalized weakness: Status: Acute (8) Morbid obesity: Status: Acute (9) Hyponatremia: Status: Acute Reason for Visit Reason for Visit: Weakness, Fever Brief History: History as per HPI: Adama Guo is a 44 year old male with diabetes and morbid obesity lives alone at home and a tiny house 12 x 30 feet on his uncles property. Patient states last few days he has had dysuria shaking and shivering sleeping all the time so finally called the ambulance. Here patient has UA positive for infection with white cells and bacteria and microscopic hematuria. He has preserved renal function, hyponatremia to 128, glucose 410 white count 14. Patient temperature here 102 lactic acid normal and he is received 2 L of IV fluid. Patient states he has had 2 or 3 UTIs in his life last was 5 to 6 years ago. 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 He has been using Ozempic 1 mg/week. He missed his last dose. His heaviest weight was in 2009. At that time he could still walk and states he was more mobile than. Patient denies psychiatric diagnosis. Past medical history diabetes hyperlipidemia hypertension obesity Past surgical history cataract surgery at age 43 Cholecystectomy and appendectomy at age 10 Hospital Course Hospital Course Patient was admitted today for hospital further evaluation and management of sepsis. He was started on broad-spectrum antibiotics with concerns for cystitis. His blood cultures from admission 1 out of 4 bottles came back positive for E. coli. Urine culture was also positive for E. coli. Antibiotics were de-escalated as per culture sensitivities. During hospitalization he was found to have uncontrolled type 2 diabetes mellitus. Is been discharged on oral Levaquin for 10 more days to finish a 14-day course of antibiotics, Lantus 35 units twice daily along with Humalog 8 units 3 times a day. During hospitalization he was found to have elevated blood pressures for which his home dose of lisinopril was increased to 30 mg oral daily. He has been discharged in hemodynamically stable condition on adjusted oral antihypertensive, antibiotic course for bacteremia and insulin for type 2 diabetes mellitus. He is to follow with his primary care provider within next 2 weeks. Physical Exam Narrative: General well-developed morbidly obese male fatigued alert and oriented and pleasant CV regular rate and rhythm Lungs clear to auscultation bilaterally Abdomen positive bowel sounds obese not tender, no renal angle tenderness Calves trace to 1+ at edema with some chronic venous stasis changes Skin he has erythema and moistness underneath his left breast fold. Left groin limited examination was not erythematous or yeasty. Const: COMMON NORMALS: patient oriented x3 GENERAL APPEARANCE: cooperative, disheveled, lethargic and appears older than stated age NUTRITIONAL APPEARANCE: obese ORIENTATION/CONSCIOUSNESS: Yes awake, Yes oriented to person, Yes oriented to place, Yes oriented to time and Yes lethargic Neuro: COMMON NORMALS: patient oriented x3 SENSORIUM/ORIENTATION: Yes oriented to person, Yes oriented to place, Yes oriented to time and Yes lethargic Discharge Data Studies Completed and Pending Completed Studies During Hospitalization Category Date Time Status XR chest 1V 76038 Stat Exams 11/26/24 17:34 Completed XR foot RT 2V [id number] Routine Exams 11/28/24 08:28 Completed Pending at discharge Category Date Time Status Blood Culture AM LABS Lab 11/28/24 05:00 Results Blood Culture Stat Lab 11/26/24 17:58 Results MAG [Magnesium] AM LABS Lab 12/02/24 04:00 Ordered Radiology Impressions Chest X-Ray 11/26/24 17:34 IMPRESSION: No acute findings. Foot X-Ray 11/28/24 08:28 Impression: 1. Tarsal osteoarthritis unchanged. 2. Subluxation of the articulation between the fifth metatarsal and the cuboid. 3. Soft tissue and soft tissue swelling surrounding the distal right leg and right foot unchanged. Microbiology 11/26/24 17:58 Blood Blood Culture - Preliminary Escherichia coli 11/28/24 05:06 Blood Blood Culture - Preliminary NEGATIVE TO DATE 11/28/24 05:00 Blood Blood Culture - Preliminary NEGATIVE TO DATE 11/26/24 18:30 Urine,Clean Catch Urine Culture - Final Escherichia coli 11/26/24 17:51 Blood Blood Culture - Preliminary NEGATIVE TO DATE Laboratory Results WBC 8.34 10^3/uL (3.29-11.43) 12/01/24 05:30 RBC 4.20 10^6/uL (3.85-5.65) 12/01/24 05:30 Hgb 11.90 g/dL (11.27-16.99) 12/01/24 05:30 Hct 37.0 % (37-53) 12/01/24 05:30 MCV 88.1 fl (82-101) 12/01/24 05:30 MCH 28.3 pg (27-33) 12/01/24 05:30 MCHC 32.2 g/dL (30-55) 12/01/24 05:30 RDW 14.0 % (12.1-15.1) 12/01/24 05:30 Plt Count 201 10^3/cmm (157-399) 12/01/24 05:30 MPV 11.5 fL (7.4-10.4) H 12/01/24 05:30 Neut % (Auto) 70.5 % 12/01/24 05:30 Lymph % (Auto) 18.1 % 12/01/24 05:30 [place] % (Auto) 9.1 % 12/01/24 05:30 Eos % (Auto) 0.5 % 12/01/24 05:30 Baso % (Auto) 0.2 % 12/01/24 05:30 Neut # (Auto) 5.88 10^3/uL (1.8-7.7) 12/01/24 05:30 Lymph # (Auto) 1.5 10^3/uL (0.8-4.8) 12/01/24 05:30 [place] # (Auto) 0.8 10^3/uL (0.2-0.9) 12/01/24 05:30 Eos # (Auto) 0.0 10^3/uL (0.0-0.8) 12/01/24 05:30 Baso # (Auto) 0.0 10^3/uL (0.0-0.1) 12/01/24 05:30 Nucleated RBC % (auto) 0 % 12/01/24 05:30 Nucleated RBCs # 0.0 /100WBC 12/01/24 05:30 Sodium 136 mmol/L (136-145) 12/01/24 05:30 Potassium 3.6 mmol/L (3.5-5.1) 12/01/24 05:30 Chloride 103 mmol/L (98-107) 12/01/24 05:30 Carbon Dioxide 22 mmol/L (22-29) 12/01/24 05:30 Anion Gap 14.6 (5-19) 12/01/24 05:30 BUN 10 mg/dL (6-20) 12/01/24 05:30 Creatinine 0.5 mg/dL (0.7-1.2) L 12/01/24 05:30 GFR Calculation 179.8 mL/min (90-130) H 12/01/24 05:30 Glucose 265 mg/dL (65-115) H 12/01/24 05:30 POC Glucose 246 mg/dL (70-110) H 12/01/24 06:28 Estimat Average Glucose 272 11/26/24 17:58 Hemoglobin A1c 11.1 % (4.0-6.0) H 11/26/24 17:58 Calculated Osmolality 290 mOsm/kg (285-295) 12/01/24 05:30 Lactic Acid 1.6 mmol/L (0.5-2.2) 11/26/24 17:58 Calcium 8.1 mg/dL (8.5-10.5) L 12/01/24 05:30 Phosphorus 1.9 mg/dL (2.5-4.5) L 11/26/24 19:38 Magnesium 1.7 mg/dL (1.7-2.3) 12/01/24 05:30 Iron 18 ug/dL (59-158) L 11/27/24 05:24 TIBC 196 mcg/dl 11/27/24 05:24 % Saturation 9.1 % (20-50) L 11/27/24 05:24 Unsat Iron Binding 178 ug/dL (112-347) 11/27/24 05:24 Total Bilirubin 0.3 mg/dL (0.15-1.2) 12/01/24 05:30 AST 51 U/L (0-40) H 12/01/24 05:30 ALT 45 U/L (0-41) H 12/01/24 05:30 Alkaline Phosphatase 104 U/L (40-130) 12/01/24 05:30 Creatine Kinase 600 U/L (39-308) H* 11/27/24 15:05 Troponin T Baseline 9 ng/L (0-15) 11/26/24 17:58 Troponin T 120 Minute 9.32 ng/L (0-15) 11/26/24 19:38 Delta Troponin T 0.32 ABS# (0-10) 11/26/24 19:38 Troponin T Hi Sens 6Hr 11.60 ng/L (0-15) 11/26/24 23:38 Troponin T Hi Sens 6Hr Delta 2.60 ng/L (0-12) 11/26/24 23:38 NT-Pro-B Natriuret Pep 419 pg/mL (0-125) H 11/26/24 17:58 Total Protein 6.8 g/dL (6.6-8.7) 12/01/24 05:30 Albumin 2.7 g/dL (3.5-5.2) L 12/01/24 05:30 Globulin 4.1 g/dL (1.3-4.6) 12/01/24 05:30 Triglycerides 107 mg/dL (0-150) 11/28/24 05:00 Cholesterol 103 mg/dL (0-200) 11/28/24 05:00 LDL Cholesterol, Calc 56 mg/dL (50-129) 11/28/24 05:00 Total VLDL Cholesterol 21 mg/dL (0-30) 11/28/24 05:00 HDL Cholesterol 26 mg/dL (60-100) L 11/28/24 05:00 Cholesterol/HDL Ratio 3.96 mg/dL (1.0-5.00) 11/28/24 05:00 Vitamin B12 375 pg/mL (232-1245) 11/27/24 05:24 Folate 11.8 ng/mL (4.5-32.2) 11/28/24 05:00 Procalcitonin 1.37 ng/mL (0-0.5) H 11/27/24 05:24 TSH 0.85 uIU/mL (0.27-4.20) 11/27/24 05:24 Urine Color Yellow (Yellow) 11/26/24 18:30 Urine Appearance Turbid (CLEAR) A 11/26/24 18:30 Urine pH 5.5 (5-7) 11/26/24 18:30 Ur Specific [place] 1.024 (1.005-1.030) 11/26/24 18:30 Urine Protein 2+ (Negative) A 11/26/24 18:30 Urine Glucose (UA) 3+ (Normal) H 11/26/24 18:30 Urine Ketones 3+ (Negative) H 11/26/24 18:30 Urine Blood 2+ (Negative) A 11/26/24 18:30 Urine Nitrate Positive (Negative) A 11/26/24 18:30 Urine Bilirubin Negative (Negative) 11/26/24 18:30 Urine Urobilinogen 1.0 mg/dL (Negative) 11/26/24 18:30 Ur Leukocyte Esterase 2+ (Negative) A 11/26/24 18:30 Urine RBC 21-50 /hpf (0-2) H 11/26/24 18:30 Urine WBC >100 /hpf (0-5) H 11/26/24 18:30 Ur Squamous Epith Cells 0-5 /hpf (0-5) 11/26/24 18:30 Amorphous Sediment Not Reportable 11/26/24 18:30 Urine Bacteria 4+ /hpf (NONE) H 11/26/24 18:30 Hyaline Casts 0.81 /lpf 11/26/24 18:30 Ur Random Sodium 16 mmol/L 11/28/24 08:55 Ur Random Potassium 14 mmol/L 11/28/24 08:55 Ur Random Chloride 27 mmol/L 11/28/24 08:55 Urine Opiates Screen Negative ng/mL (Negative) 11/26/24 18:30 Ur Barbiturates Screen Negative ng/mL (Negative) 11/26/24 18:30 Ur Phencyclidine Scrn Negative ng/mL (Negative) 11/26/24 18:30 Ur Amphetamines Screen Negative ng/mL (Negative) 11/26/24 18:30 U Benzodiazepines Scrn Negative ng/mL (Negative) 11/26/24 18:30 Urine Cocaine Screen Negative ng/mL (Negative) 11/26/24 18:30 U Marijuana (THC) Screen Negative ng/mL (Negative) 11/26/24 18:30 Serum Ketones Negative (Negative) 11/27/24 12:22 C. difficile (PCR) Negative (Negative) 11/27/24 07:45 Influenza A (PCR) Negative (Negative) 11/26/24 18:20 Influenza Type B (PCR) Negative (Negative) 11/26/24 18:20 RSV (PCR) Negative (Negative) 11/26/24 18:20 SARS-CoV-2 (PCR) Negative (Negative) 11/26/24 18:20 Vitals Last Vital Signs Temp 98.6 F 12/01/24 07:30 Pulse 69 12/01/24 07:30 Resp 18 12/01/24 07:30 BP 159/89 12/01/24 07:30 Pulse Ox 95 12/01/24 07:30 O2 Del Method Room Air 12/01/24 07:30 Discharge Plan Discharge Patient Disposition: Home Condition: Stable Prescriptions: New lisinopril 10 mg Tablet 30 mg PO QAM 30 Days Qty: 90 0RF levofloxacin 750 mg tablet 750 mg PO Q24H 10 Days Qty: 10 0RF insulin glargine [Lantus Solostar U-100 Insulin] 100 unit/mL (3 mL) insulin pen 35 unit SUBCUT BID Qty: 15 0RF (DME) blood-glucose meter [Blood Glucose Monitoring] Kit See Rx Instructions .ROUTE .MEDSUPPLY Qty: 1 0RF Rx Instructions: As directed (DME) lancets Misc See Rx Instructions .ROUTE .MEDSUPPLY Qty: 100 0RF Rx Instructions: As directed insulin lispro [Humalog KwikPen Insulin] 100 unit/mL insulin pen 8 unit SUBCUT TID Qty: 15 0RF Continued atorvastatin 10 mg tablet 10 mg PO QAM (DME) diabetic shoes with 3 inserts See Rx Instructions .Route .MEDSUPPLY Qty: 1 0RF Rx Instructions: As directed acetaminophen 500 mg Tablet 1,500 mg PO Q6H PRN (Reason: Pain) Ozempic 1 mg/dose (4 mg/3 mL) pen injector 1 mg SUBCUT Q7D Rx Instructions: Monday Changed furosemide 20 mg tablet 20 mg PO QAM Qty: 30 0RF Discontinued glipizide 10 mg tablet 10 mg PO QAM PRN (Reason: blood sugar) Discharge Orders: Discharge Order (Routine); Ordered 12/01/24 Ordered By: Garland Clay Referrals: Ino Delcid [Referring, Family Practice] - 7-10 days Referral Note: Please contact primary care provider Monday morning to schedule a hospital follow up appointment within 1 week of discharge. Thank you! Discharge Diet: Diabetic Discharge Activity: Resume usual activity and Increase activity as tolerated Patient Instructions: Levofloxacin (By mouth) (Levaquin, Levaquin Leva-mohit), Insulin Lispro Protamine/Insulin Lispro (By injection), Insulin Glargine (By injection), Obesity (GEN), Diabetes and Nutrition (GEN), Obesity and Weight Control, Opioid Safety Activity Restrictions/Additional Instructions: Check your blood sugars daily at home maintain blood sugar diary. Your fasting blood sugar should be less than 140. Take Lantus 35 units morning and evening. 8 units of Humalog insulin before each meal. Check your blood pressure daily at home and maintain a blood pressure diary. Goal blood pressure of less than 140/90 mmHg. Dose of lisinopril has been increased to 30 mg oral daily. Follow-up with your primary care provider within next 2 weeks with your blood pressure and blood sugar diary further adjustment of medications. Take Levaquin which is the antibiotic for next 10 days. Discharge Attestations Time Spent in Discharge Care*: greater than 30 min Specific Discharge Activities: educating patient, educating and/or supporting family/caregiver, discussing with pcp/other providers, discussing with correctional counselor/case manager/social workers/dc planners, documenting/other paperwork and evaluating patient/reviewing data Status at Discharge: Cognitive status at discharge: cognitively intact, Behavioral status at discharge: cooperative, Functional status at discharge: independent ambulation, Overall status at discharge: patient is back to baseline Quality Metrics Clinical Quality Measures [ No reported AMI, CVA or VTE this stay] Coding Level of Care Code 15435 Total time (in minutes) for Discharge: 70 Diagnoses Acute cystitis with hematuria N30.01 E. coli bacteremia R78.81; B96.20 Sepsis A41.9 Acute dehydration E86.0 High anion gap metabolic acidosis E87.29 Uncontrolled type 2 diabetes mellitus Generalized weakness R53.1 Morbid obesity E66.01 Hyponatremia E87.1
[2024-12-01 10:53] LABS: Glucose Point of Care 311 mg/dL (70-110)
--- NOTE | 2024-12-01 11:36 | PC.NURSE ---
Discharge paperwork discussed with patient. All questions were answered. IV line was removed. Patient stated his ride would be here between 1300 and 1400.
[2024-12-01 12:42] VITALS: BP 183/94; PULSE 64; RESP 18; TEMP 36.7; O2SAT 97
--- NOTE | 2024-12-01 14:48 | PC.NURSE ---
Patient transferred into wheelchair using walker. Patient was taken to exit via wheelchair, accompanied by SHELLY Greer and relative with all belongings.
[2024-12-01 14:50] VITALS: BP 183/94; PULSE 64; RESP 18; TEMP 36.7; O2SAT 97
== END 2024-12-01 14:51 | disposition home or self-care (01) | DRG 872 ==
LOC: ER 20:03 → MEDSURG 20:05
PROVIDERS: Admitting Provider Internal Medicine; Emergency Provider Emergency Medicine; PCP Thoracic Surgery (Cardiothoracic Vascular Surgery); Visit Provider Student in an Organized Health Care Education/Training Program
DX: A41.51 Sepsis due to Escherichia coli [E. coli] (principal); N30.01 Acute cystitis with hematuria; E87.20 Acidosis, unspecified; Z68.45 Body mass index [BMI] 70 or greater, adult; E87.1 Hypo-osmolality and hyponatremia; E86.0 Dehydration; E11.9 Type 2 diabetes mellitus without complications; E66.01 Morbid (severe) obesity due to excess calories; E78.5 Hyperlipidemia, unspecified; I10 Essential (primary) hypertension; Z79.85 Long-term (current) use of injectable non-insulin antidiabetic drugs; Z79.84 Long term (current) use of oral hypoglycemic drugs
CPT/HCPCS: 36415; 36416; 71045; 73620; 80048; 80053; 80061; 80306; 81001; 82009; 82436; 82550; 82607; 82746; 82962; 83036; 83540; 83550; 83605; 83735; 83880; 84100; 84133; 84145; 84300; 84443; 84484; 85025; 87040; 87077; 87086; 87150; 87186; 87205; 87493; 87637; 93005; 96361; 96372; 96374; 96376; 97110; 97116; 97162; 97167; 97530; 97535; 99285; J0696; J1650; J1815; J2543; J3475; J3480; J7030; J7040; J9999